=== PATIENT | male | born 1930 | race Caucasian/White ===

== ENCOUNTER 2018-11-30 13:17 | Inpatient (IN) | payer OTHER, MEDICARE ==
--- NOTE | 2018-11-30 13:26 | PDOC ---
History of Present Illness - General Chief Complaint: Shortness of Breath Stated Complaint: SHORNTESS OF BREATH Time Seen by Provider: 11/30/18 13:25 - History of Present Illness Initial Comments: 88yo M with PMH of HTN, HLD, Afib (on Eliquis) brought in by EMS for shortness of breath. Patient states he has had worsening shortness of breath for the past two months or so. He presents today because it got acutely worse today. Patient also reports dyspnea on exertion. He used to be an active person, but today his daughter who was visiting him was afraid he might fall going up one stair step. He also endorses leg swelling for the past week or so and also abdominal distention such that his pants were difficult to get on. Has never taken a diuretic. Has not had increased fluid intake. No chest pain or cough. No hemoptysis, no recent surgical history, no recent immobilization, no hormone use, no history of DVT or PE. Denies smoking history or lung pathology such as COPD or asthma. No fever or chills. PCP: Dr. Fung Cardio: Dr. Cortez Past History - Past Medical History Allergies/Adverse Reactions: Allergies Allergy/AdvReac Type Severity Reaction Status Date / Time No Known Allergies Allergy Verified 11/30/18 13:29 Home Medications: Ambulatory Orders Atorvastatin Ca [Lipitor -] 20 mg PO DAILY 03/01/14 Amiodarone HCl 200 mg PO DAILY 11/30/18 Amlodipine Besylate [Norvasc -] 10 mg PO DAILY 11/30/18 Apixaban [Eliquis] 5 mg PO BID 11/30/18 Losartan Potassium 100 mg PO DAILY 11/30/18 Metoprolol Succinate 100 mg PO BID 11/30/18 Anemia: No Asthma: No Cancer: No Cardiac Disorders: No CVA: No COPD: No CHF: No Dementia: No Diabetes: No GI Disorders: No Disorders: No HTN: Yes Hypercholesterolemia: Yes Liver Disease: No Seizures: No Thyroid Disease: No - Surgical History Abdominal Surgery: No Appendectomy: No Cardiac Surgery: No Cholecystectomy: No Lung Surgery: No Neurologic Surgery: No Orthopedic Surgery: Yes (right hip replacement) - Suicide/Smoking/Psychosocial Hx Smoking History: Former smoker Have you smoked in the past 12 months: No Review of Systems - Review of Systems Comments:: Constitutional: no fever, no chills HEENT: no throat pain, no dysphagia Cardiovascular: no chest pain, no palpitations Respiratory: no cough, +shortness of breath Gastrointestinal: no abdominal pain, no nausea Genitourinary: no dysuria, no frequency Musculoskeletal: no myalgia, no arthralgia Skin: no rash, no itching Neurologic: no headache, no focal deficits *Physical Exam - Physical Exam Comments: General: Awake, alert, and fully oriented, in no acute distress Head: No signs of trauma Eyes: EOMI, sclera anicteric ENT: Moist mucus membranes Neck: Normal ROM, supple Lungs: Decreased breath sounds at the bases Cardio: Irregular rhythm, S1 and S2 present Abdomen: Soft, nontender Extremities: Normal range of motion, Distal pulses present, 2+ pitting edema, no calf tenderness SKIN: Warm, Dry, normal turgor Neurologic: Cranial nerves II through XII grossly intact. Normal speech ED Treatment Course - LABORATORY CBC & Chemistry Diagram: 11/30/18 14:16 11/30/18 14:16 Medical Decision Making - Medical Decision Making 88yo M with PMH of HTN, HLD, Afib (on Eliquis) brought in by EMS for shortness of breath. DDX including but not limited to CHF exacerbation, ACS, PNA, PE, COPD High suspicion for new-onset CHF given patient appearing fluid overloaded. Recent diagnosis of Afib may also be contributing. No cardiac ECHO results known or seen in EMR. 11/30/18 13:58 CBC WBC 13.3 K/mm3 (4.0-10.0) H 11/30/18 14:16 RBC 4.31 M/mm3 (4.00-5.60) 11/30/18 14:16 Hgb 13.8 GM/dL (11.7-16.9) 11/30/18 14:16 Hct 39.8 % (35.4-49) 11/30/18 14:16 MCV 92.2 fl (80-96) 11/30/18 14:16 MCH 32.0 pg (25.7-33.7) 11/30/18 14:16 MCHC 34.7 g/dl (32.0-35.9) 11/30/18 14:16 RDW 14.0 % (11.9-15.9) 11/30/18 14:16 Plt Count 267 K/MM3 (134-434) 11/30/18 14:16 MPV 7.2 fl (7.5-11.1) L 11/30/18 14:16 Absolute Neuts (auto) 11.6 K/mm3 (1.5-8.0) H 11/30/18 14:16 Neutrophils % 87.0 % (42.8-82.8) H 11/30/18 14:16 Lymphocytes % 6.0 % (8-40) L 11/30/18 14:16 Monocytes % 6.3 % (3.8-10.2) 11/30/18 14:16 Eosinophils % 0.1 % (0-4.5) 11/30/18 14:16 Basophils % 0.6 % (0-2.0) 11/30/18 14:16 Nucleated RBC % 0 % (0-0) 11/30/18 14:16 Mild leukocytosis No anemia CMP Sodium 122 mmol/L (136-145) L 11/30/18 14:16 Potassium 4.5 mmol/L (3.5-5.1) 11/30/18 14:16 Chloride 90 mmol/L (98-107) L 11/30/18 14:16 Carbon Dioxide 24 mmol/L (21-32) 11/30/18 14:16 Anion Gap 8 MMOL/L (8-16) 11/30/18 14:16 BUN 24 mg/dL (7-18) H 11/30/18 14:16 Creatinine 0.9 mg/dL (0.55-1.3) 11/30/18 14:16 Creat Clearance w eGFR 79.45 (>60) 11/30/18 14:16 Random Glucose 138 mg/dL (74-106) H 11/30/18 14:16 Calcium 8.8 mg/dL (8.5-10.1) 11/30/18 14:16 Total Bilirubin 1.0 mg/dL (0.2-1) 11/30/18 14:16 AST 33 U/L (15-37) 11/30/18 14:16 ALT 46 U/L (13-61) 11/30/18 14:16 Alkaline Phosphatase 89 U/L (45-117) 11/30/18 14:16 Troponin I < 0.02 ng/ml (0.00-0.05) 11/30/18 14:16 B-Natriuretic Peptide 1401.6 pg/ml (5-450) H 11/30/18 14:16 Total Protein 8.1 g/dl (6.4-8.2) 11/30/18 14:16 Albumin 3.4 g/dl (3.4-5.0) 11/30/18 14:16 TSH 2.08 uIU/ml (0.358-3.74) 11/30/18 14:16 Hyponatremia likely due to fluid overload BNP elevated 1401 Tpn undetectable CXR: "There are no prior studies for comparison. There is a large heart, congestive changes and some questionable atelectasis or infiltrate with fluid at the bases. There are degenerative spine and shoulder changes. Correlation recommended. ' 40 Lasix ordered Patient increasingly became diaphoretic and tachypneic, appearing uncomfortable BiPAP orderd Patient improved Discussed case with Dr. Gramajo who accepted patient for telemetry admission 11/30/18 16:[address] Cortez who would like to speak to Dr. Gramajo regarding patient's admission and to contact his cell number, . telegraph repeater mechanic passed along message. 11/30/18 17:02 Patient's daughter, Nichelle, can be reached at [phone] 11/30/18 21:40 *DC/Admit/Observation/Transfer Diagnosis at time of Disposition: New onset of congestive heart failure - Discharge Dispostion Condition at time of disposition: Guarded Decision to Admit order: Yes - Referrals - Patient Instructions - Post Discharge Activity
--- NOTE | 2018-11-30 14:14 | PDOC ---
Documentation entered by Melquiades Cabrales SCRIBE, acting as scribe for Jannet Teran MD. Jannet Teran MD: This documentation has been prepared by the nelyibe, Melquiades Cabrales SCRIBE, under my direction and personally reviewed by me in its entirety. I confirm that the documentation accurately reflects all work, treatment, procedures, and medical decision making performed by me. Attending Attestation - Resident Resident Name: Jannet Allred - ED Attending Attestation I have performed the following: I have examined & evaluated the patient, The case was reviewed & discussed with the resident, I agree w/resident's findings & plan, Exceptions are as noted - HPI HPI: 11/30/18 14:06 The patient is a 88 year old female with a significant past medical history of hypertension, hyperlipidemia and afib ( on eliquis) who report to the emergency department worsening shortness of breath for about 1 month. he states that his SOB has worsened in the past week.the patient also endorses some recent increase in leg swelling causing his pants to not fit him anymore. He has been dyspneic while going up 1 step earlier today. The patient denies any chest pain , cough, recent travel , increase in fluid intake, fever, chills, nausea, vomiting, or diarrhea. He denies any other complaints. - Physicial Exam PE: GENERAL: Awake, alert, and fully oriented, in no acute distress HEAD: No signs of trauma EYES: PERRLA, EOMI, sclera anicteric, conjunctiva clear ENT: Auricles normal inspection, hearing grossly normal, nares patent, oropharynx clear without exudates. Moist mucosa NECK: Normal ROM, supple, no lymphadenopathy, JVD, or masses LUNGS: Good air entry B/L, +crackles at bases B/L HEART: Regular rate and rhythm, normal S1 and S2, no murmurs, rubs or gallops ABDOMEN: Soft, nontender, normoactive bowel sounds. No guarding, no rebound. No masses. +Abdominal retractions on inspiration EXTREMITIES: Normal range of motion, 2+ pitting edema to BLE. No clubbing or cyanosis. No cords, erythema, or tenderness NEUROLOGICAL: Cranial nerves II through XII grossly intact. Normal speech. Motor and sensation intact SKIN: Warm, Dry, normal turgor, no rashes or lesions noted. - Medical Decision Making Pt with signs of new onset heart failure. No prior history of CHF, and no prior diuretic use. Will await workup, then will call Dr. Cortez to discuss. Plan for admission.
[2018-11-30 14:27] LABS: BASO % 0.6 % (0-2.0); EOS % 0.1 % (0-4.5); HEMATOCRIT 39.8 % (35.4-49); HEMOGLOBIN 13.8 GM/dL (11.7-16.9); MCHC 34.7 g/dl (32.0-35.9); MEAN CELL VOLUME 92.2 fl (80-96); MEAN PLT VOLUME 7.2 fl (7.5-11.1); MONO % 6.3 % (3.8-10.2); PLATELET COUNT 267 K/MM3 (134-434); RBC 4.31 M/mm3 (4.00-5.60); WHITE BLOOD COUNT 13.3 K/mm3 (4.0-10.0)
[2018-11-30] MEDS ORDERED: FUROSEMIDE 40 MG/4 ML INJECTABLE VIAL IVPUSH ONE ×2 (14:29→17:29)
[2018-11-30 15:17] LABS: ALBUMIN 3.4 g/dl (3.4-5.0); ALK PHOS 89 U/L (45-117); ANION GAP 8 MMOL/L (8-16); BLOOD UREA NITROGEN 24 mg/dL (7-18); CALCIUM 8.8 mg/dL (8.5-10.1); CHLORIDE 90 mmol/L (98-107); CO2 24 mmol/L (21-32); CREATININE 0.9 mg/dL (0.55-1.3); GLUCOSE,RANDOM 138 mg/dL (74-106); N-TERMINAL BNP 1401.6 pg/ml (5-450); POTASSIUM 4.5 mmol/L (3.5-5.1); SGOT/AST 33 U/L (15-37); SGPT/ALT 46 U/L (13-61); SODIUM 122 mmol/L (136-145); TOT PROT 8.1 g/dl (6.4-8.2)
[2018-11-30 15:37] LABS: INR 1.43 (0.83-1.09); PROTHROMBIN TIME (PATIENT) 16.9 SEC (9.7-13.0)
[2018-11-30 15:40] LABS: ACTIVATED PTT 34.4 SECONDS (25.2-36.5)
[2018-11-30 16:00] LABS: PH,URINE 5.5 (5.0-8.0); URINE APPEARANCE CLEAR; URINE BACTERIA 5.4 /hpf (NEGATIVE); URINE BILIRUBIN NEGATIVE (NEGATIVE); URINE CASTS 4 /lpf (0-8); URINE COLOR YELLOW; URINE GLUCOSE (UA) NEGATIVE (NEGATIVE); URINE KETONE NEGATIVE (NEGATIVE); URINE LEUK ESTERASE NEGATIVE (NEGATIVE); URINE NITRITE NEGATIVE (NEGATIVE); URINE PROTEIN 2+ (NEGATIVE); URINE RBC 3 /hpf (0-4); URINE WBC 1 /hpf (0-5)
--- NOTE | 2018-11-30 17:00 | HP ---
CHIEF COMPLAINT: shortness of breath, weight gain, leg and abdominal swelling PCP: Dr. Fung Electrical Lineman: Dr. Cortez HISTORY OF PRESENT ILLNESS: 88 yom with PMhx of HTN, HLD, diagnosed with new onset atrial fibrillation on routine check up with Dr Cortez 3 months ago, placed on eliquis, reportedly started on amiodarone 200 mg, no recent echo (per family), comes with progressive shortness of breath, weight gain, leg swelling, abdominal distension , unable to fit in his clothes. Over the last few days, breathing was worse, so came to the ED. In the ED, was short of breath, diaphoretic, placed on bipap. Currently feels much better after being on bipap and receiving lasix 40 mg IV 12 point ROS done, pos for PND. Denies any chest pain, palpitations, dizziness, urinary complaints. 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 [place] Family History: Allergies No Known Allergies Allergy (Verified 11/30/18 13:29) HOME MEDICATIONS: Home Medications Medication Instructions Recorded Atorvastatin Ca [Lipitor -] 20 mg PO DAILY 03/01/14 Amiodarone HCl 200 mg PO DAILY 11/30/18 Amlodipine Besylate [Norvasc -] 10 mg PO DAILY 11/30/18 Apixaban [Eliquis] 5 mg PO BID 11/30/18 Losartan Potassium 100 mg PO DAILY 11/30/18 Metoprolol [place]/Hydrochlorothiaz 100 mg PO BID 11/30/18 [Metoprolol ER-Hctz 100-12.5 mg] REVIEW OF SYSTEMS 12 point ROS done, per HPI PHYSICAL EXAMINATION Vital Signs - 24 hr 11/30/18 11/30/18 11/30/18 13:17 14:22 15:25 Temperature 97.6 F Pulse Rate 82 Respiratory 16 Rate Blood Pressure 153/82 O2 Sat by Pulse 100 90 L 96 Oximetry (%) GENERAL: Awake, alert, and fully oriented, on bipap,comfortable now, able to speak in full sentences HEAD: Normal with no signs of trauma. EYES: Pupils equal, round and reactive to light, extraocular movements intact, sclera anicteric, conjunctiva clear. No lid lag. EARS, NOSE, THROAT: Ears normal, nares patent, oropharynx clear without exudates. Moist mucous membranes. NECK: soft, supple, neck vein distension LUNGS: bibasilar rales till mid lung, scattered rhonchi HEART: S1S2 irregular, unable to appreciate murmurs/rales or wheezing as obscured by breath sounds ABDOMEN: Soft, distended, NT throughout, positive bowel sounds MUSCULOSKELETAL: Normal range of motion at all joints. No bony deformities or tenderness. No CVA tenderness. UPPER EXTREMITIES: 2+ pulses, warm, well-perfused. No cyanosis. No clubbing. No peripheral edema. LOWER EXTREMITIES: 2+ pedal pitting edema NEUROLOGICAL: AAOx3, moves all extremities freely, Cranial nerves II-XII intact. Normal speech. Gait not observed PSYCHIATRIC: Cooperative. Good eye contact. Appropriate mood and affect. SKIN: Warm, dry, normal turgor, no rashes or lesions noted, normal capillary refill. Laboratory Results - last 24 hr 11/30/18 11/30/18 11/30/18 14:16 14:16 14:16 WBC 13.3 H RBC 4.31 Hgb 13.8 Hct 39.8 MCV 92.2 MCH 32.0 MCHC 34.7 RDW 14.0 Plt Count 267 MPV 7.2 L Absolute Neuts (auto) 11.6 H Neutrophils % 87.0 H Lymphocytes % 6.0 L Monocytes % 6.3 Eosinophils % 0.1 Basophils % 0.6 Nucleated RBC % 0 PT with INR 16.90 H INR 1.43 H PTT (Actin FS) 34.4 Sodium 122 L Potassium 4.5 Chloride 90 L Carbon Dioxide 24 Anion Gap 8 BUN 24 H Creatinine 0.9 Creat Clearance w eGFR 79.45 Random Glucose 138 H Calcium 8.8 Total Bilirubin 1.0 AST 33 ALT 46 Alkaline Phosphatase 89 Troponin I < 0.02 B-Natriuretic Peptide 1401.6 H Total Protein 8.1 Albumin 3.4 TSH 2.08 Urine Color Urine Appearance Urine pH Ur Specific [place] Urine Protein Urine Glucose (UA) Urine Ketones Urine Blood Urine Nitrite Urine Bilirubin Urine Urobilinogen Ur Leukocyte Esterase Urine WBC (Auto) Urine RBC (Auto) Urine Casts (Auto) U Epithel Cells (Auto) Urine Bacteria (Auto) 11/30/18 15:38 WBC RBC Hgb Hct MCV MCH MCHC RDW Plt Count MPV Absolute Neuts (auto) Neutrophils % Lymphocytes % Monocytes % Eosinophils % Basophils % Nucleated RBC % PT with INR INR PTT (Actin FS) Sodium Potassium Chloride Carbon Dioxide Anion Gap BUN Creatinine Creat Clearance w eGFR Random Glucose Calcium Total Bilirubin AST ALT Alkaline Phosphatase Troponin I B-Natriuretic Peptide Total Protein Albumin TSH Urine Color Yellow Urine Appearance Clear Urine pH 5.5 Ur Specific [place] 1.018 Urine Protein 2+ H Urine Glucose (UA) Negative Urine Ketones Negative Urine Blood Trace Urine Nitrite Negative Urine Bilirubin Negative Urine Urobilinogen 1.0 Ur Leukocyte Esterase Negative Urine WBC (Auto) 1 Urine RBC (Auto) 3 Urine Casts (Auto) 4 U Epithel Cells (Auto) 1.0 Urine Bacteria (Auto) 5.4 CXR - congestion EKG - sinus tach 107, QTc 440 ASSESSMENT/PLAN: 88 yom with PMHx of HTN, HLD, recently diagnosed Atrial fibrillation on Eliquis/ Amiodarone admitted with ACute CHF exacerbation -Acute CHF exacerbation, systolic vs diastolic vs paroxysmal Afib with RVR -Acute hypoxic respiratory failure, suspected from above -Recentaly diagnosed Atrial fibrillation -HTN -HLD -Plan: Improved on bipap and lasix iV Continue lasix 40 mg IV BID, strict I/Os (educated patient), daily weights. Check 2 D echo (no recent study) telemetry, cycle trop. Cardiology consult with Dr. Cortez, case discussed with him,will follow up on recs. Bipap prn, taper as symptoms improve Continue amiodarone/eliquis/metoprolol/statin. Resume amlodipine in AM based on hemodynamics DVTPPX on eliquis DIspo admit to inpatient tele Plan discussed with patient and at bedside in detail, all questions answered. Care co-ordinated with ED and cardiology. Total admit time spent 65 min. Visit type - Emergency Visit Emergency Visit: Yes ED Registration Date: 11/30/18 Care time: The patient presented to the Emergency Department on the above date and was hospitalized for further evaluation of their emergent condition. - New Patient This patient is new to me today: Yes Date on this admission: 11/30/18 - Critical Care Critical Care patient: No
[2018-11-30] MEDS ORDERED: FUROSEMIDE 40 MG/4 ML INJECTABLE VIAL ONE (17:42)
--- NOTE | 2018-11-30 21:15 | CONS ---
DATE OF CONSULTATION: 11/30/2018 CARDIOLOGY CONSULTATION CHIEF COMPLAINTS: 1. Increasing shortness of breath. 2. Pedal edema. 3. PVD. The patient is an 88-year-old [place] gentleman with long-standing history of hypertension, hyperlipidemia, was recently seen in the office and was found to be in asymptomatic atrial fibrillation with controlled ventricular response. He was started on Eliquis and also was started on amiodarone. For the past 1 week, patient has been experiencing increasing exertional dyspnea and he was unable to walk even a few feet without experiencing shortness of breath. Since yesterday, he has been experiencing shortness of breath at rest and, according to his , he was noted to have increasing pedal edema, also complained of abdominal distention and increased girth. He complained of easy fatigability. There is no history of chest pain or discomfort even at rest or with exertion. No history of paroxysmal nocturnal dyspnea or orthopnea. He sleeps on 1 pillow. No history of palpitations, lightheadedness, dizziness, presyncope or syncope. History of intermittent wheezing and occasional nonproductive cough. PAST HISTORY: As mentioned in the history of present illness. 1. History of bleeding peptic ulcer disease back in the 1960's. 2. History of arthritis of the right hip. 3. 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 SURGICAL HISTORY: Status post right hip replacement. SOCIAL HISTORY: He is retired, , has 5 children, 4 sons and a daughter. 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 FAMILY HISTORY: Father at age 87 of natural causes. Mother at age 91, also of natural causes. Had 3 sisters and 3 brothers. Two of the sisters and one of the brothers are . The brother of dementia. One of the sisters at age 92 and had history of cancer, site uncertain. The other sister at 81, apparently of natural causes. ALLERGIES: None reported. MEDICATIONS: Prior to admission, he was on the following medications: 1. Amlodipine 10 mg p.o. daily. 2. Metoprolol 100 mg p.o. b.i.d. 3. Losartan 100 mg p.o. daily. 4. Atorvastatin 20 mg p.o. daily. 5. Amiodarone 200 mg p.o. daily. 6. Eliquis 5 mg p.o. b.i.d. REVIEW OF SYSTEMS: Constitutional: No history of chills, fever or night sweats. No history of unintentional weight loss. HEENT: No history of headaches, diplopia, blurred vision. No history of epistaxis, hoarseness, tinnitus or deafness. Cardiovascular: See history of present illness. Respiratory: See history of present illness. No history of hemoptysis or tuberculosis. Gastrointestinal: No history of nausea, vomiting, melena, or hematemesis. No history of abdominal pain. History of abdominal distention for the past few days. No history of change in bowel habits. Neurological: No history of lightheadedness, dizziness, presyncope or syncope reported. No history of focal weakness. Genitourinary: History of frequent nocturia, every 2 hours. History of urgency. No history of hematuria or dysuria. Musculoskeletal: No history recent arthralgias or myalgias reported. Hematological: No history of anemia, bleeding, or ecchymosis. Miscellaneous: History of loud snoring, according to his . No history of apnea or periodic limb movements reported. No history of increased somnolence during the daytime. EXAMINATION: General: An 88-year-old alert and obese gentleman, who is in no acute distress at the time of examination. Earlier, he had been on a BiPAP. No pallor, cyanosis, clubbing, or jaundice. Vital Signs: Weight 95.254 kg. Blood pressure 120/93 mmHg. Pulse 92 beats per minute and irregularly irregular. Respirations 16 per minute. Oxygen saturation . Neck: Supple. No jugular venous distention. Slightly positive hepatojugular reflux. Carotids were 2+. Upstrokes were normal. No bruits were heard. There was no thyromegaly. No supraclavicular or inframandibular lymphadenopathy. Heart: PMI was in the 5th intercostal space. No heaves or thrills. Heart sounds were distant, S1 was variable, S2 was split. No murmurs were heard. There was an S3 gallop at the apex. Lungs: Fine crepitations at the right base. No other extraneous sounds were heard. Chest: Normal AP diameter. Expansion was symmetrical. No bruits were heard. Bowel sounds were present. Extremities: With 2+ bilateral pedal edema, 1 to 2+ bilateral pretibial edema. There was an ulceration involving the plantar surface of the left foot and there were ecchymotic areas involving the 2nd right toe. Dorsalis pedis and posterior tibial pulses could not be palpated. Femoral pulses were 1 to 2+. ECG: Atrial rhythm is uncertain, most likely atrial fibrillation with and controlled ventricular response. Left anterior hemiblock. Poor R-wave progression across V1 to V5, may be related to left anterior hemiblock and underlying anterior wall myocardial infarction cannot be excluded. Diffuse ST and T-wave abnormalities. No previous ECG was available for comparison. X-ray of chest, portable: Impression: There are no prior studies for comparison. There is a large heart, congestive changes, and some questionable atelectasis or infiltrate with fluid at the bases. There are degenerative spine and shoulder changes. Correlation recommended. LABORATORY DATA: CBC: WBC 13,300, hemoglobin 13.8 g/dL, platelet count 267,000, neutrophils were elevated at 87%, lymphocytes 6%, monocytes 6.3%, eosinophils 0.1%, basophils 0.6%. Chemistry: Sodium 122, potassium 4.5, chloride 90, CO2 24 mmol/L, BUN 24, creatinine 0.9 mg/dL, random glucose 138 mg/dL, calcium 8.8 mg/dL. BNP was elevated at 1401.6. Liver function tests were normal. Troponin was less than 0.02. TSH was 2.08. IMPRESSION: 1. Progressive congestive heart failure of recent onset, [place] Heart classification IV (on admission). 2. Recently diagnosed persistent atrial fibrillation with controlled ventricular response. 3. Hypertension, hypertensive cardiovascular disease. 4. History of hypercholesterolemia. 5. Exogenous obesity. 6. Sleep apnea needs to be excluded. 7. Hyponatremia. RECOMMENDATIONS: 1. Recheck electrolytes. 2. Cautious use of diuretics in the presence of hyponatremia. 3. Echocardiogram. 4. If blood pressure or heart rate is low, consider reducing the dose of metoprolol to 50 mg p.o. b.i.d. 5. Daily weights. 6. Close monitoring of oxygen saturation. 7. Follow up electrocardiogram and enzymes. PROGNOSIS: Critical. TIME SPENT: 1 hour 45 minutes. Thank you for your referral. Yours sincerely, BEV MESA M.D. [id number]
[2018-11-30] MEDS ORDERED: APIXABAN 5 MG TABLET PO ONE (21:25)
[2018-11-30] MEDS ORDERED: ATORVASTATIN CA 10 MG TABLET (FP) ONE (21:26)
[2018-11-30] MEDS: ATORVASTATIN CA 20 MG TABLET (FP) PO SCH (21:58)
[2018-11-30] MEDS: APIXABAN 5 MG TABLET PO SCH (21:58)
[2018-12-01] MEDS ORDERED: FUROSEMIDE 40 MG/4 ML INJECTABLE VIAL ONE (06:15)
[2018-12-01] MEDS: FUROSEMIDE 40 MG/4 ML INJECTABLE VIAL IVPUSH SCH ×2 (06:17→17:31)
[2018-12-01 06:52] LABS: BASO % 0.7 % (0-2.0); EOS % 0.5 % (0-4.5); HEMATOCRIT 37.1 % (35.4-49); HEMOGLOBIN 13.2 GM/dL (11.7-16.9); MCH 32.5 pg (25.7-33.7); MCHC 35.5 g/dl (32.0-35.9); MEAN CELL VOLUME 91.4 fl (80-96); MEAN PLT VOLUME 7.7 fl (7.5-11.1); NEUT % 73.8 % (42.8-82.8); PLATELET COUNT 254 K/MM3 (134-434); RBC 4.06 M/mm3 (4.00-5.60); WHITE BLOOD COUNT 12.6 K/mm3 (4.0-10.0)
[2018-12-01 07:23] LABS: ALBUMIN 3.4 g/dl (3.4-5.0); ALK PHOS 69 U/L (45-117); ANION GAP 10 MMOL/L (8-16); BILIRUBIN,TOTAL 1.1 mg/dL (0.2-1); BLOOD UREA NITROGEN 22 mg/dL (7-18); CALCIUM 8.4 mg/dL (8.5-10.1); CHLORIDE 91 mmol/L (98-107); CO2 26 mmol/L (21-32); CREATININE 0.9 mg/dL (0.55-1.3); GLUCOSE,RANDOM 93 mg/dL (74-106); PHOSPHOROUS 3.7 mg/dL (2.5-4.9); POTASSIUM 3.6 mmol/L (3.5-5.1); SGOT/AST 38 U/L (15-37); SGPT/ALT 40 U/L (13-61); SODIUM 127 mmol/L (136-145); TOT PROT 7.2 g/dl (6.4-8.2)
--- NOTE | 2018-12-01 08:23 | PN ---
Physical Exam: SUBJECTIVE: Patient seen and examined, breathing with some improvement, no new complaints. OBJECTIVE: Vital Signs Period Temp Pulse Resp BP Sys/Go Pulse Ox Last 24 Hr 97.6 F 65-92 16-26 118-153/77-93 90-100 Intake & Output 11/28/18 11/29/18 11/30/18 12/01/18 23:59 23:59 23:59 23:59 Output Total 600 Balance -600 Weight 210 lb GENERAL: lying in bed, tachypneic, but able to speak in full sentences Neck: soft, supple, neck vein distension CVS:S1s2 irregular Chest improved basilar rales, no rhonchi noted today Abdomen;soft, improved distension, NT Extremities: 1-2+ pedal pitting edema, overall unchanged Laboratory Results - last 24 hr 11/30/18 11/30/18 11/30/18 14:16 14:16 14:16 WBC 13.3 H RBC 4.31 Hgb 13.8 Hct 39.8 MCV 92.2 MCH 32.0 MCHC 34.7 RDW 14.0 Plt Count 267 MPV 7.2 L Absolute Neuts (auto) 11.6 H Neutrophils % 87.0 H Lymphocytes % 6.0 L Monocytes % 6.3 Eosinophils % 0.1 Basophils % 0.6 Nucleated RBC % 0 PT with INR 16.90 H INR 1.43 H PTT (Actin FS) 34.4 Sodium 122 L Potassium 4.5 Chloride 90 L Carbon Dioxide 24 Anion Gap 8 BUN 24 H Creatinine 0.9 Creat Clearance w eGFR 79.45 Random Glucose 138 H Calcium 8.8 Phosphorus Magnesium Total Bilirubin 1.0 AST 33 ALT 46 Alkaline Phosphatase 89 Troponin I < 0.02 B-Natriuretic Peptide 1401.6 H Total Protein 8.1 Albumin 3.4 TSH 2.08 Urine Color Urine Appearance Urine pH Ur Specific Superior Urine Protein Urine Glucose (UA) Urine Ketones Urine Blood Urine Nitrite Urine Bilirubin Urine Urobilinogen Ur Leukocyte Esterase Urine WBC (Auto) Urine RBC (Auto) Urine Casts (Auto) U Epithel Cells (Auto) Urine Bacteria (Auto) 11/30/18 11/30/18 12/01/18 15:38 21:40 05:50 WBC RBC Hgb Hct MCV MCH MCHC RDW Plt Count MPV Absolute Neuts (auto) Neutrophils % Lymphocytes % Monocytes % Eosinophils % Basophils % Nucleated RBC % PT with INR INR PTT (Actin FS) Sodium Potassium Chloride Carbon Dioxide Anion Gap BUN Creatinine Creat Clearance w eGFR Random Glucose Calcium Phosphorus Magnesium Total Bilirubin AST ALT Alkaline Phosphatase Troponin I < 0.02 < 0.02 B-Natriuretic Peptide Total Protein Albumin TSH Urine Color Yellow Urine Appearance Clear Urine pH 5.5 Ur Specific Superior 1.018 Urine Protein 2+ H Urine Glucose (UA) Negative Urine Ketones Negative Urine Blood Trace Urine Nitrite Negative Urine Bilirubin Negative Urine Urobilinogen 1.0 Ur Leukocyte Esterase Negative Urine WBC (Auto) 1 Urine RBC (Auto) 3 Urine Casts (Auto) 4 U Epithel Cells (Auto) 1.0 Urine Bacteria (Auto) 5.4 12/01/18 12/01/18 05:50 05:50 WBC 12.6 H RBC 4.06 Hgb 13.2 Hct 37.1 MCV 91.4 MCH 32.5 MCHC 35.5 RDW 14.0 Plt Count 254 MPV 7.7 Absolute Neuts (auto) 9.3 H Neutrophils % 73.8 Lymphocytes % 15.0 D Monocytes % 10.0 Eosinophils % 0.5 D Basophils % 0.7 Nucleated RBC % 0 PT with INR INR PTT (Actin FS) Sodium 127 L Potassium 3.6 Chloride 91 L Carbon Dioxide 26 Anion Gap 10 BUN 22 H Creatinine 0.9 Creat Clearance w eGFR 79.45 Random Glucose 93 Calcium 8.4 L Phosphorus 3.7 Magnesium 2.0 Total Bilirubin 1.1 H AST 38 H ALT 40 Alkaline Phosphatase 69 Troponin I B-Natriuretic Peptide Total Protein 7.2 Albumin 3.4 TSH Urine Color Urine Appearance Urine pH Ur Specific Superior Urine Protein Urine Glucose (UA) Urine Ketones Urine Blood Urine Nitrite Urine Bilirubin Urine Urobilinogen Ur Leukocyte Esterase Urine WBC (Auto) Urine RBC (Auto) Urine Casts (Auto) U Epithel Cells (Auto) Urine Bacteria (Auto) Active Medications Generic Name Dose Route Start Last Admin Trade Name Freq PRN Reason Stop Dose Admin Amiodarone HCl 200 mg 12/01/18 10:00 Cordarone - PO DAILY JULIAN Apixaban 5 mg 11/30/18 22:00 11/30/18 21:58 Eliquis - PO 5 mg BID JULIAN Administration Atorvastatin Calcium 20 mg 11/30/18 22:00 11/30/18 21:58 Lipitor - PO Not Given HS [facility] Furosemide 40 mg 12/01/18 06:00 12/01/18 06:17 Lasix Injection - IVPUSH 40 mg BID@0600,1400 JULIAN Administration Metoprolol Succinate 100 mg 11/30/18 22:00 11/30/18 21:58 Toprol Xl - PO Not Given BID JULIAN Telemetry Afib rate controled. ASSESSMENT/PLAN: 88 yom with PMHx of HTN, HLD, recently diagnosed Atrial fibrillation on Eliquis/ Amiodarone admitted with ACute CHF exacerbation -Acute CHF exacerbation, systolic vs diastolic vs from paroxysmal Afib with RVR -Acute hypoxic respiratory failure, suspected from above -Recentaly diagnosed Atrial fibrillation -HTN -HLD -Plan: Still tachypneic and hypoxic Continue lasix 40 mg IV BID, monitor if needs higher dose. Repeat CXR. Bipap prn Strict I/Os. Follow up 2D echo. Cardiology input appreciated. ACS ruled out. Still in Afib. Continue eliquis/metoprolol/amiodarone/statin resume amlodipine based on hemodynamics. Dispo anticipate home +/- services pending clinical improvement. Plan discussed with patient and ED nurse in detail, all questions answered. Visit type - Emergency Visit Emergency Visit: Yes ED Registration Date: 11/30/18 Care time: The patient presented to the Emergency Department on the above date and was hospitalized for further evaluation of their emergent condition. - New Patient This patient is new to me today: No - Critical Care Critical Care patient: No - Discharge Referral Referred to [facility] Med P.C.: No
--- NOTE | 2018-12-01 10:59 | EKG ---
Test Reason : Blood Pressure : / mmHG Vent. Rate : 075 BPM Atrial Rate : 046 BPM P-R Int : 000 ms QRS Dur : 118 ms QT Int : 402 ms P-R-T Axes : 000 -44 083 degrees QTc Int : 448 ms UNDETERMINED RHYTHM , LIKELY ATRIAL FIBRILLATION LEFT AXIS DEVIATION ANTEROSEPTAL INFARCT , AGE UNDETERMINED ABNORMAL ECG NO PREVIOUS ECGS AVAILABLE Confirmed by DEWEY BOSS MD ([id number]) on 12/01/2018 10:59:12 AM Referred By: Confirmed By:DEWEY BOSS MD
[2018-12-01] MEDS: AMIODARONE HCL 200 MG TABLET (FP) PO SCH (11:00)
[2018-12-01] MEDS: APIXABAN 5 MG TABLET PO SCH ×2 (11:00→22:01)
[2018-12-01 16:15] VITALS: BMI 33.7
--- NOTE | 2018-12-01 16:21 | ECHO ---
Name: OBI JAUREGUI Exam:Adult Echocardiogram Study Date: 12/01/2018 12:59 PM Age: 88 yrs Reason For Study: NEW ONSET OF CHF Height: 70 in Weight: 210 lb BSA: 2.1 m2 MMode/2D Measurements & Calculations IVSd: 1.0 cm Ao root diam: 3.2 cm LVIDd: 5.4 cm LA dimension: 4.1 cm LVIDs: 3.8 cm LVPWd: 1.0 cm EDV(Teich): 139.1 ml LVOT diam: 2.2 cm ESV(Teich): 63.2 ml Doppler Measurements & Calculations MV E max jordan: 124.4 cm/sec Ao V2 max: 124.1 cm/sec MV A max jordan: 42.4 cm/sec Ao max P.2 mmHg MV E/A: 2.9 Ao V2 mean: 82.1 cm/sec MV dec time: 0.14 sec Ao mean P.1 mmHg Ao V2 VTI: 24.6 cm YANIV(I,D): 3.2 cm2 AI P1/2t: 306.5 msec YANIV(V,D): 3.3 cm2 AI max jordan: 226.1 cm/sec LV V1 max P.0 mmHg AI max P.5 mmHg LV V1 mean P.4 mmHg AI dec slope: 216.0 cm/sec2 LV V1 max: 112.0 cm/sec LV V1 mean: 71.1 cm/sec LV V1 VTI: 21.3 cm MR max jordan: 460.9 cm/sec SV(LVOT): 77.7 ml MR max P.0 mmHg TR max jordan: 309.0 cm/sec Med Peak E' Jordan: 6.1 cm/sec TR max P.6 mmHg Med E/e': 20.3 Lat Peak E' Jordan: 9.1 cm/sec Lat E/e': 13.7 Procedure A complete two-dimensional transthoracic echocardiogram was performed (2D, M-mode, Doppler and color flow Doppler). Technically limited study. Left Ventricle The left ventricle is normal in size. Left ventricular systolic function is low normal. Ejection Frac tion = 50-55%. Diastolic dysfunction, Grade III (restrictive pattern), consistent with markedly increased le ft atrial pressure. Ratio E/E'= 20. The transmitral spectral Doppler flow pattern is suggestive of restrictive physiology. No regional wall motion abnormalities noted. Right Ventricle The right ventricle is normal size. The right ventricular systolic function is normal. RV systolic TD I is 10 cm/s. Atria The left atrium is mildly dilated. Right atrial size is normal. Mitral Valve The mitral valve is normal in structure and function. There is moderate mitral regurgitation. Tricuspid Valve The tricuspid valve is normal in structure and function. There is mild tricuspid regurgitation. Pulmo nary artery systolic pressure is at least 52 mmHg if RA pressure is assumed 3 mmHg. Aortic Valve The aortic valve is normal in structure and function. Trace to mild aortic regurgitation. Pulmonic Valve The pulmonic valve is not well visualized. Trace pulmonic valvular regurgitation. Great Vessels The aortic root is normal size. Pericardium/Pleura There is no pericardial effusion. Interpretation Summary Technically limited study The left ventricle is normal in size. Left ventricular systolic function is low normal. No regional wall motion abnormalities noted. Ejection Fraction = 50-55%. Diastolic dysfunction, Grade III (restrictive pattern), consistent with markedly increased left atria l pressure. The transmitral spectral Doppler flow pattern is suggestive of restrictive physiology. Ratio E/E'= 20 The right ventricular systolic function is normal. The left atrium is mildly dilated. Right atrial size is normal. There is moderate mitral regurgitation. There is mild tricuspid regurgitation. Pulmonary artery systolic pressure is at least 52 mmHg if RA pressure is assumed 3 mmHg Trace to mild aortic regurgitation. Trace pulmonic valvular regurgitation. There is no pericardial effusion. Previous study is not available for comparison Ken Fernando MD 12/01/2018 04:21 PM
--- NOTE | 2018-12-01 18:02 | PN ---
Progress Note (short form) - Note Progress Note: . No H/o SOb, no chest pain or discomfort.There is no history of chest pain or discomfort even at rest or with exertion.Denies history of paroxysmal nocturnal dyspnea or orthopnea, periods of hypoxemia, and on BIPAP specially at night. No history of palpitations, lightheadedness, dizziness, presyncope or syncope. [facility] cannot afford el[facility]is. 30 min. discussion with his son and [id number], regarding the change to warfarin which was done at their request and can always be switched back to eliquis and should appoint one person to coordinatethe patient 's management with the physcians. Active Medications Amiodarone HCl (Cordarone -) 200 mg PO DAILY [facility] Last Admin: 12/01/18 11:00 Dose: 200 mg Apixaban (Eliquis -) 5 mg PO BID [facility] Last Admin: 12/01/18 11:00 Dose: 5 mg Atorvastatin Calcium (Lipitor -) 20 mg PO HS [facility] Last Admin: 11/30/18 21:58 Dose: Not Given Furosemide (Lasix Injection -) 40 mg IVPUSH BID@0600,1400 [facility] Last Admin: 12/01/18 17:31 Dose: 40 mg Metoprolol Succinate (Toprol Xl -) 50 mg PO BID [facility] Last Vital Signs Temp Pulse Resp BP Pulse Ox 98.2 F 84 20 115/63 95 12/02/18 17:00 12/02/18 17:00 12/02/18 17:00 12/02/18 17:00 12/02/18 07:58 General: 88-year-old alert and obese gentleman, who is in no acute distress at the time of examination. Earlier, he had been on a BiPAP. No pallor, cyanosis , clubbing, or jaundice. Neck: Supple. No jugular venous distention. Slightly positive hepatojugular reflux. Carotids were 2+. Upstrokes were normal. No bruits were heard. There was no thyromegaly. No supraclavicular or inframandibular lymphadenopathy. Heart: PMI was in the 5th intercostal space. No heaves or thrills. Heart sounds were distant, S1 was variable, S2 was split. No murmurs were heard. There was an S3 gallop at the apex. Lungs: Fine crepitations at the right base. No other extraneous sounds were heard. Chest: Normal AP diameter. Expansion was symmetrical. Abdomen: No bruits were heard. Bowel sounds were present. Extremities: 1+ pedal edema. There was an ulceration involving the plantar surface of the left foot and there were ecchymotic areas involving the 2nd right toe. Dorsalis pedis and posterior tibial pulses could not be palpated. Femoral pulses were 1 to 2+. CBC, BMP 12/02/18 05:30 12/02/18 05:30 Interpretation Summary 12/01/18 Technically limited study. The left ventricle is normal in size. Left ventricular systolic function is low normal. No regional wall motion abnormalities noted. Ejection fraction= 50-55% Diastolic dysfunction, Grade III (restrictive pattern), consistent with markedly increased left atrial pressure. The transmitral spectral Doppler flow pattern is suggestive of restrictive physiology. Ratio E/E'= 20 The right ventricular systolic function is normal. The left atrium is mildly dilated. The right atrial size is normal. There is moderate mitral regurgitation. There is mild tricuspid regurgitation. Pulmonary artery systolic pressure is at least 52 mmHg if RA pressure is assumed 3 mmHg. Trace to mild aortic regurgitation. Trace pulmonic valvular regurgitation. There is no pericardial effusion. IMPRESSION: 1. Recent congestive heart failure, resolving. 2. Severe left ventricular diastolic dysfunction. 3. Hypertension, hypertensive cardiovascular disease. 4. Intermittent hypoxemia, most likely related to #2. 5. Persistent atrial fibrillation with controlled ventricular response. 6. Sleep apnea needs to be excluded. 7. Hyponatremia. 8. History of hypercholesterolemia. 9. Exogenous obesity. RECOMMENDATIONS: 1. Close follow up of electrolytes. 2. Amiodarone level. 3. If dyspnea and CHF persists dose of lasix may have to be increased. PROGNOSIS: Critical.
[2018-12-01] MEDS: ATORVASTATIN CA 20 MG TABLET (FP) PO SCH (22:01)
[2018-12-02] MEDS: FUROSEMIDE 40 MG/4 ML INJECTABLE VIAL IVPUSH SCH ×2 (06:14→13:50)
[2018-12-02 07:34] LABS: BASO % 0.6 % (0-2.0); EOS % 1.9 % (0-4.5); HEMOGLOBIN 13.8 GM/dL (11.7-16.9); LYMPH % 18.6 % (8-40); MCH 31.5 pg (25.7-33.7); MCHC 34.5 g/dl (32.0-35.9); MEAN CELL VOLUME 91.3 fl (80-96); MEAN PLT VOLUME 7.5 fl (7.5-11.1); MONO % 13.5 % (3.8-10.2); NEUT % 65.4 % (42.8-82.8); PLATELET COUNT 278 K/MM3 (134-434); RBC 4.38 M/mm3 (4.00-5.60); RDW 13.8 % (11.9-15.9); WHITE BLOOD COUNT 11.5 K/mm3 (4.0-10.0)
[2018-12-02 07:47] LABS: ALBUMIN 3.4 g/dl (3.4-5.0); ALK PHOS 76 U/L (45-117); ANION GAP 10 MMOL/L (8-16); BLOOD UREA NITROGEN 20 mg/dL (7-18); CALCIUM 8.9 mg/dL (8.5-10.1); CHLORIDE 87 mmol/L (98-107); CO2 29 mmol/L (21-32); CREATININE 0.9 mg/dL (0.55-1.3); GLUCOSE,RANDOM 77 mg/dL (74-106); MAGNESIUM 2.1 mg/dL (1.8-2.4); PHOSPHOROUS 3.1 mg/dL (2.5-4.9); POTASSIUM 3.6 mmol/L (3.5-5.1); SGOT/AST 43 U/L (15-37); SGPT/ALT 43 U/L (13-61); SODIUM 126 mmol/L (136-145); TOT PROT 7.9 g/dl (6.4-8.2)
[2018-12-02] MEDS: ENOXAPARIN NA (PORCINE) 100 MG/1 ML DISP.SYRIN SQ SCH ×2 (09:21→21:14)
[2018-12-02] MEDS: AMIODARONE HCL 200 MG TABLET (FP) PO SCH (09:21)
[2018-12-02] MEDS ORDERED: POTASSIUM CHLORIDE TABS 20 MEQ TABLET.ER (FP) PO ONE (09:30)
--- NOTE | 2018-12-02 11:21 | PN ---
Physical Exam: SUBJECTIVE: Patient seen and examined, breathing improved, no new complaints. OBJECTIVE: Vital Signs Period Temp Pulse Resp BP Sys/Go Pulse Ox Last 24 Hr 97.8 F-98.4 F 59-80 18-26 100-146/53-88 92-98 Intake & Output 11/29/18 11/30/18 12/01/18 12/02/18 23:59 23:59 23:59 23:59 Intake Total 280 260 Output Total 600 3375 550 Balance -600 -3095 -290 Weight 210 lb 235 lb 6.4 oz 236 lb 3.2 oz GENERAL: sitting in bed in no acute distress, no further tachypnea or use of accessory muscles of respiration neck: soft, supple, neck vein distension Chest; Improved basilar rales and air entry, no wheezing Abdomen:soft, NT, improved distension Extremities: improved pedal edema Laboratory Results - last 24 hr 12/02/18 12/02/18 05:30 05:30 WBC 11.5 H RBC 4.38 Hgb 13.8 Hct 40.0 MCV 91.3 MCH 31.5 MCHC 34.5 RDW 13.8 Plt Count 278 MPV 7.5 Absolute Neuts (auto) 7.5 Neutrophils % 65.4 Lymphocytes % 18.6 D Monocytes % 13.5 H Eosinophils % 1.9 D Basophils % 0.6 Nucleated RBC % 0 Sodium 126 L Potassium 3.6 Chloride 87 L Carbon Dioxide 29 Anion Gap 10 BUN 20 H Creatinine 0.9 Creat Clearance w eGFR 79.45 Random Glucose 77 Calcium 8.9 Phosphorus 3.1 Magnesium 2.1 Total Bilirubin 1.0 AST 43 H ALT 43 Alkaline Phosphatase 76 Total Protein 7.9 Albumin 3.4 Active Medications Generic Name Dose Route Start Last Admin Trade Name Freq PRN Reason Stop Dose Admin Amiodarone HCl 200 mg 12/01/18 10:00 12/02/18 09:21 Cordarone - PO 200 mg DAILY JULIAN Administration Atorvastatin Calcium 20 mg 11/30/18 22:00 12/01/18 22:01 Lipitor - PO 20 mg HS JULIAN Administration Enoxaparin Sodium 100 mg 12/02/18 10:00 12/02/18 09:21 Lovenox - SQ 100 mg BID JULIAN Administration Furosemide 40 mg 12/01/18 06:00 12/02/18 06:14 Lasix Injection - IVPUSH 40 mg BID@0600,1400 JULIAN Administration Metoprolol Succinate 50 mg 12/01/18 22:00 12/02/18 09:21 Toprol Xl - PO 50 mg BID [facility] Administration Warfarin Sodium 5 mg 12/02/18 18:00 Coumadin - PO DAILY@1800 [facility] Telemetry: nighttime bradycardia and hypoxia ASSESSMENT/PLAN: 88 yom with PMHx of HTN, HLD, recently diagnosed Atrial fibrillation on Eliquis/ Amiodarone admitted with ACute CHF exacerbation -Acute CHF exacerbation, systolic vs diastolic vs from paroxysmal Afib with RVR -Acute hypoxic respiratory failure, suspected from above -Recentaly diagnosed Atrial fibrillation -Hypervolumic hypernatremia -Suspect underlying PITO -HTN -HLD -Plan: Markedly improved. Transition to po lasix in [address]. [address] Cortez, patient unable to afford eliquis. Will place on lovenox/coumadin. Discussed with nursing to provide lovenox teaching to patient/family, patient agreable. Also Dr. Cortez recommending CT chest to assess for amiodarone toxicity, given ongoing hypoxia. CT chest. Overnight bradycardia/hypoxia, suspect underlying PITO. Pulmonary consult. 2D echo noted. ACS ruled out. Still in Afib. Continue statin. Amiodarone per cardiology. Metoprolol decreased. resume amlodipine based on hemodynamics. d/c eliquis, start on lovenox/coumadin. Patient aware of need for close INR monitoring with PCP or finish off operator after dc. Na improved. Dispo anticipate home +/- services/home oxygen in 24-48 hours if improved. Plan discussed with patient and ED nurse in detail, all questions answered. Care co-ordinated with Dr. Cortez. Visit type - Emergency Visit Emergency Visit: Yes ED Registration Date: 11/30/18 Care time: The patient presented to the Emergency Department on the above date and was hospitalized for further evaluation of their emergent condition. - New Patient This patient is new to me today: No - Critical Care Critical Care patient: No - Discharge Referral Referred to [facility] Med P.C.: No
--- NOTE | 2018-12-02 12:50 | PN ---
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
--- NOTE | 2018-12-02 13:23 | CONS ---
PULMONARY CONSULTATION DATE OF CONSULTATION: 12/02/2018 REFERRING PHYSICIAN: Kishor Gramajo MD HISTORY OF PRESENT ILLNESS: The patient is an 88-year-old, white male with past medical history of atrial fibrillation, pulmonary hypertension, hypertension, hyperlipidemia, admitted to [facility] with complaint of a 1- month history of increasing shortness of breath and dyspnea on exertion. Patient states that he was doing well, until 3 to 4 weeks prior to admission. He started noticing increasing shortness of breath with exertion. He denied any complaint of chest pain, nausea, vomiting or diaphoresis associated with this. He also noted increasing lower extremity edema. For the past week prior to admission, he started developing severe dyspnea with minimal exertion, as well as increasing lower extremity edema, as well as orthopnea. He denied any chest pain, again, nausea or vomiting. He presented to the emergency room with the above. In the ER, he was felt to be hypoxic in congestive heart failure. He was placed on BiPAP. He was given Lasix and transferred up to the medical floor for further management. Patient underwent an echocardiogram on December 01 which revealed evidence of severe diastolic dysfunction with grade 3 restrictive pattern with a mildly dilated left atrium, moderate mitral regurgitation, and pulmonary artery systolic pressure of 52. Patient denies any history of COPD or asthma. He has a history of tobacco for approximately 10 years; quit 40 years ago. 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 He denies any recent travel. There is no history of DVT or PE in the past. PAST MEDICAL HISTORY: Again, includes hypertension, hyperlipidemia, permanent atrial fibrillation. REVIEW OF SYSTEMS: Positive orthopnea. Positive dyspnea. Positive hypoxia. No chest pain. No palpitations. No abdominal pain. Positive lower extremity edema. CURRENT MEDICATIONS: Include Cordarone, Lovenox, Coumadin, Toprol, Lipitor, and Lasix IV. PHYSICAL EXAMINATION: General: The patient is a well-developed, well-nourished male, awake, alert, mildly dyspneic, but in no acute distress. Vital Signs: He is afebrile, blood pressure is 142/88, respiratory rate is 22, O2 saturation is 95% on 4 L. HEENT: Exam is normocephalic, atraumatic. Neck: Supple. Heart: Irregular, irregular S1 and S2. Chest: Bibasilar crackles. Abdomen: Soft. Bowel sounds are positive. Extremities: Bilateral lower extremity edema. LABORATORY DATA: WBC is 11.5, hemoglobin 13.8, hematocrit 40, platelet count is 278,000. INR is 1.43. Serum sodium is 126, BUN 20, creatinine 0.9. BNP is 1401. IMAGING: Chest CT reveals moderate-sized, bilateral pleural effusions, increased pulmonary vascular congestion and lower lobe atelectatic changes, multiple hepatic cysts. IMPRESSION: 1. Acute hypoxemic respiratory failure, secondary to anemia of chronic diastolic heart failure. 2. Severe pulmonary hypertension. 3. Permanent atrial fibrillation. 4. Hyponatremia. 5. Hypertension. 6. Hyperlipidemia. 7. Rule out possible obstructive sleep apnea. PLAN: IV Lasix. Supplemental O2. Daily weights. Monitor O2 saturations prior to discharge to determine whether patient is a candidate and requires home O2. Would consider outpatient sleep studies. Monitor serum sodium and electrolytes. ERIKA OCAMPO M.D. [id number] MTDD
[2018-12-02] MEDS: WARFARIN NA 5 MG TABLET (UD) PO SCH (17:39)
[2018-12-02] MEDS: ATORVASTATIN CA 20 MG TABLET (FP) PO SCH (21:13)
[2018-12-03] MEDS: FUROSEMIDE 40 MG/4 ML INJECTABLE VIAL IVPUSH SCH ×2 (05:11→13:26)
[2018-12-03 07:47] LABS: INR 1.1 (0.83-1.09)
[2018-12-03 08:02] LABS: EOS % 2.8 % (0-4.5); HEMATOCRIT 40.3 % (35.4-49); HEMOGLOBIN 14.1 GM/dL (11.7-16.9); LYMPH % 20.4 % (8-40); MCHC 35.1 g/dl (32.0-35.9); MEAN PLT VOLUME 7.5 fl (7.5-11.1); MONO % 12.6 % (3.8-10.2); NEUT % 63.2 % (42.8-82.8); PLATELET COUNT 300 K/MM3 (134-434); RBC 4.43 M/mm3 (4.00-5.60); RDW 14.1 % (11.9-15.9); WHITE BLOOD COUNT 10.3 K/mm3 (4.0-10.0)
[2018-12-03 08:10] LABS: ALBUMIN 3.3 g/dl (3.4-5.0); ALK PHOS 92 U/L (45-117); ANION GAP 7 MMOL/L (8-16); BILIRUBIN,TOTAL 0.7 mg/dL (0.2-1); BLOOD UREA NITROGEN 21 mg/dL (7-18); CALCIUM 8.7 mg/dL (8.5-10.1); CHLORIDE 88 mmol/L (98-107); CO2 34 mmol/L (21-32); GLUCOSE,RANDOM 80 mg/dL (74-106); POTASSIUM 3.8 mmol/L (3.5-5.1); SGOT/AST 40 U/L (15-37); SGPT/ALT 43 U/L (13-61); SODIUM 128 mmol/L (136-145); TOT PROT 7.8 g/dl (6.4-8.2)
--- NOTE | 2018-12-03 10:00 | PN ---
Progress Note, Physician History of Present Illness: pulmonary alert,feeling better,less dyspneic,slept well - Current Medication List Current Medications: Active Medications Amiodarone HCl (Cordarone -) 200 mg PO DAILY [facility] Last Admin: 12/02/18 09:21 Dose: 200 mg Atorvastatin Calcium (Lipitor -) 20 mg PO HS [facility] Last Admin: 12/02/18 21:13 Dose: 20 mg Enoxaparin Sodium (Lovenox -) 100 mg SQ BID [facility] Last Admin: 12/02/18 21:14 Dose: 100 mg Furosemide (Lasix Injection -) 40 mg IVPUSH BID@0600,1400 [facility] Last Admin: 12/03/18 05:11 Dose: 40 mg Metoprolol Succinate (Toprol Xl -) 50 mg PO BID [facility] Last Admin: 12/02/18 21:13 Dose: 50 mg Warfarin Sodium (Coumadin -) 5 mg PO DAILY@1800 [facility] Last Admin: 12/02/18 17:39 Dose: 5 mg - Objective Vital Signs: Vital Signs Temperature 98.0 F 12/03/18 09:00 Pulse Rate 64 12/03/18 09:31 Respiratory Rate 16 12/03/18 09:00 Blood Pressure 123/76 12/03/18 09:00 O2 Sat by Pulse Oximetry (%) 97 12/03/18 09:31 Constitutional: Yes: Well Nourished, Calm Eyes: Yes: WNL HENT: Yes: WNL Neck: Yes: WNL Cardiovascular: Yes: Pulse Irregular, S1, S2 Respiratory: Yes: Rales (bibasilar rales) Gastrointestinal: Yes: Normal Bowel Sounds, Soft Extremities: Yes: WNL Edema: Yes Labs: CBC, BMP 12/03/18 05:48 12/03/18 05:48 INR, PTT INR 1.10 (0.83-1.09) H 12/03/18 05:48 Problem List - Problems (1) Acute on chronic diastolic CHF (congestive heart failure), NYHA class 3 Code(s): I50.33 - ACUTE ON CHRONIC DIASTOLIC (CONGESTIVE) HEART FAILURE (2) Afib Code(s): I48.91 - UNSPECIFIED ATRIAL FIBRILLATION (3) Acute hypoxemic respiratory failure Code(s): J96.01 - ACUTE RESPIRATORY FAILURE WITH HYPOXIA (4) HTN (hypertension) Code(s): I10 - ESSENTIAL (PRIMARY) HYPERTENSION (5) Hyponatremia Code(s): E87.1 - HYPO-OSMOLALITY AND HYPONATREMIA Assessment/Plan IMP ACUTE HYPOXEMIC RESPIRATORY FAILURE IMPROVING ACUTE ON CHRONIC DIASTOLIC HF AFIB PULMONARY HTN HYPONATREMIA improving HTN HLD 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 PLAN CONTINUE IV LASIX SUPPLEMENTAL O2 DAILY WT MONITOR LYTES,NA F/U 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
[2018-12-03] MEDS: AMIODARONE HCL 200 MG TABLET (FP) PO SCH (10:21)
[2018-12-03] MEDS: ENOXAPARIN NA (PORCINE) 100 MG/1 ML DISP.SYRIN SQ SCH ×2 (10:22→22:12)
--- NOTE | 2018-12-03 13:52 | PN ---
Physical Exam: SUBJECTIVE: Patient seen and examined, breathing improved, feels well. OBJECTIVE: Vital Signs Period Temp Pulse Resp BP Sys/Go Pulse Ox Last 24 Hr 97.8 F-98.2 F 58-84 15-22 115-142/63-79 95-97 Intake & Output 11/30/18 12/01/18 12/02/18 12/03/18 23:59 23:59 23:59 23:59 Intake Total 280 580 240 Output Total 600 3375 1550 1400 Balance -600 -3095 -970 -1160 Weight 210 lb 235 lb 6.4 oz 236 lb 3.2 oz 237 lb 6.4 oz GENERAL:sitting in bed, resolved tachypnea, able to speak in full sentences CVS:S1S2 irregular Chest: decreased breath sounds at bases, improved rales, no wheezing Abdomen:soft, NT, ND Extremities: improved pedal edema Neck: soft, supple, no JVD visualized Laboratory Results - last 24 hr 12/03/18 12/03/18 12/03/18 05:48 05:48 05:48 WBC 10.3 H RBC 4.43 Hgb 14.1 Hct 40.3 MCV 91.0 MCH 32.0 MCHC 35.1 RDW 14.1 Plt Count 300 MPV 7.5 Absolute Neuts (auto) 6.5 Neutrophils % 63.2 Lymphocytes % 20.4 Monocytes % 12.6 H Eosinophils % 2.8 Basophils % 1.0 Nucleated RBC % 0 PT with INR 13.00 INR 1.10 H Sodium 128 L Potassium 3.8 Chloride 88 L Carbon Dioxide 34 H Anion Gap 7 L BUN 21 H Creatinine 1.0 Creat Clearance w eGFR 70.36 Random Glucose 80 Calcium 8.7 Total Bilirubin 0.7 AST 40 H ALT 43 Alkaline Phosphatase 92 Total Protein 7.8 Albumin 3.3 L Active Medications Generic Name Dose Route Start Last Admin Trade Name Freq PRN Reason Stop Dose Admin Amiodarone HCl 200 mg 12/01/18 10:00 12/03/18 10:21 Cordarone - PO 200 mg DAILY JULIAN Administration Atorvastatin Calcium 20 mg 11/30/18 22:00 12/02/18 21:13 Lipitor - PO 20 mg HS JULIAN Administration Enoxaparin Sodium 100 mg 12/02/18 10:00 12/03/18 10:22 Lovenox - SQ 100 mg BID JULIAN Administration Furosemide 40 mg 12/01/18 06:00 12/03/18 13:26 Lasix Injection - IVPUSH 40 mg BID@0600,1400 JULIAN Administration Metoprolol Succinate 50 mg 12/01/18 22:00 12/03/18 10:21 Toprol Xl - PO 50 mg BID JULIAN Administration Warfarin Sodium 5 mg 12/02/18 18:00 12/02/18 17:39 Coumadin - PO 5 mg DAILY@[address] chest images and results reviewed Telemetry Afib rate controlled, night time early AM lisa 40s ASSESSMENT/PLAN: 88 yom with PMHx of HTN, HLD, recently diagnosed Atrial fibrillation on Eliquis/ Amiodarone admitted with ACute CHF exacerbation -Acute CHF exacerbation, systolic vs diastolic vs from paroxysmal Afib with RVR -Acute hypoxic respiratory failure, suspected from above -Recentaly diagnosed Atrial fibrillation -Hypervolumic hypernatremia -Suspect underlying PITO -HTN -HLD -Plan: Continues to improve. CT chest with pleural effusions, non concerns for amiodarone toxicity. Continue IV diuresis for 24-[address] Cortez, patient unable to afford eliquis. Lovenox/coumadin. Patient agreable to home Lovenox injections, RN to provide ongoing education. Pulmonary input noted, will need outpatient follow up for sleep study. 2D echo noted. ACS ruled out. Still in Afib. Continue statin. Amiodarone per cardiology. Metoprolol decreased. Resume amlodipine based on hemodynamics. Patient aware of need for close INR monitoring with PCP or hide worker after dc. Na improved. Dispo anticipate home +/- services/home oxygen in 48 hours if continues to improve. Will need home oxygen needs assessment prior to dc. PT eval. Visit type - Emergency Visit Emergency Visit: Yes ED Registration Date: 11/30/18 Care time: The patient presented to the Emergency Department on the above date and was hospitalized for further evaluation of their emergent condition. - New Patient This patient is new to me today: No - Critical Care Critical Care patient: No - Discharge Referral Referred to [facility] Med P.C.: No
--- NOTE | 2018-12-03 14:14 | PN ---
Progress Note (short form) - Note Progress Note: . No H/o SOB, no chest pain or discomfort.There is no history of chest pain or discomfort even at rest or with exertion.Denies history of paroxysmal nocturnal dyspnea or orthopnea, periods of hypoxemia, and on BIPAP specially at night. No history of palpitations, lightheadedness, dizziness, presyncope or syncope. Started in coumadin by hospitalist as patient cannot afford eliquis. On O2 Active Medications Generic Name Dose Route Start Last Admin Trade Name Damon PRN Reason Stop Dose Admin Amiodarone HCl 200 mg 12/01/18 10:00 12/03/18 10:21 Cordarone - PO 200 mg DAILY JULIAN Administration Atorvastatin Calcium 20 mg 11/30/18 22:00 12/02/18 21:13 Lipitor - PO 20 mg HS JULIAN Administration Enoxaparin Sodium 100 mg 12/02/18 10:00 12/03/18 10:22 Lovenox - SQ 100 mg BID JULIAN Administration Furosemide 40 mg 12/01/18 06:00 12/03/18 13:26 Lasix Injection - IVPUSH 40 mg BID@0600,1400 JULIAN Administration Metoprolol Succinate 50 mg 12/01/18 22:00 12/03/18 10:21 Toprol Xl - PO 50 mg BID JULIAN Administration Warfarin Sodium 5 mg 12/02/18 18:00 12/02/18 17:39 Coumadin - PO 5 mg DAILY@1800 JULINA Administration Last Vital Signs Temp Pulse Resp BP Pulse Ox 98.0 F 64 irregular 16 123/76 97 12/03/18 09:00 12/03/18 09:31 12/03/18 09:00 12/03/18 09:00 12/03/18 09:31 General: 88-year-old alert and obese gentleman, who is in no acute distress at the time of examination. Earlier, he had been on a BiPAP. No pallor, cyanosis , clubbing, or jaundice. Neck: Supple. No jugular venous distention.-Ve. hepatojugular reflux. Carotids were 2+. Upstrokes were normal. No bruits were heard. There was no thyromegaly. No supraclavicular or inframandibular lymphadenopathy. Heart: PMI was in the 5th intercostal space. No heaves or thrills. Heart sounds were distant, S1 was variable, S2 was split. No murmurs were heard. No gallops heard. Lungs: Fine crepitations at the left base. No other extraneous sounds were heard. Chest: Normal AP diameter. Expansion was symmetrical. Abdomen: No bruits were heard. Bowel sounds were present. Extremities: trace pedal edema. There was an ulceration involving the plantar surface of the left foot and there were ecchymotic areas involving the 2nd right toe. Dorsalis pedis and posterior tibial pulses could not be palpated. Femoral pulses were 1 to 2+. CBC, BMP 12/03/18 05:48 12/03/18 05:48 Interpretation Summary 12/01/18 Technically limited study. The left ventricle is normal in size. Left ventricular systolic function is low normal. No regional wall motion abnormalities noted. Ejection fraction= 50-55% Diastolic dysfunction, Grade III (restrictive pattern), consistent with markedly increased left atrial pressure. The transmitral spectral Doppler flow pattern is suggestive of restrictive physiology. Ratio E/E'= 20 The right ventricular systolic function is normal. The left atrium is mildly dilated. The right atrial size is normal. There is moderate mitral regurgitation. There is mild tricuspid regurgitation. Pulmonary artery systolic pressure is at least 52 mmHg if RA pressure is assumed 3 mmHg. Trace to mild aortic regurgitation. Trace pulmonic valvular regurgitation. There is no pericardial effusion. IMPRESSION: 1. Recent congestive heart failure, resolving. 2. Severe left ventricular diastolic dysfunction. 3. Hypertension, hypertensive cardiovascular disease. 4. Intermittent hypoxemia, most likely related to #2. 5. Persistent atrial fibrillation with controlled ventricular response. 6. Sleep apnea needs to be excluded. 7. Hyponatremia. 8. History of hypercholesterolemia. 9. Exogenous obesity. RECOMMENDATIONS: 1. Close follow up of electrolytes. 2. Amiodarone level. 3. Increase ambulation. 4. Will consider RIVERA and cardioversion, if remains in atrial fib. PROGNOSIS: Critical.
[2018-12-03] MEDS: WARFARIN NA 5 MG TABLET (UD) PO SCH (17:28)
[2018-12-03] MEDS: ATORVASTATIN CA 20 MG TABLET (FP) PO SCH (22:12)
[2018-12-04] MEDS: FUROSEMIDE 40 MG/4 ML INJECTABLE VIAL IVPUSH SCH ×2 (05:09→15:44)
[2018-12-04 07:49] LABS: INR 1.15 (0.83-1.09); PROTHROMBIN TIME (PATIENT) 13.6 SEC (9.7-13.0)
[2018-12-04 10:01] LABS: ANION GAP 6 MMOL/L (8-16); BLOOD UREA NITROGEN 22 mg/dL (7-18); CALCIUM 8.8 mg/dL (8.5-10.1); CHLORIDE 91 mmol/L (98-107); CO2 33 mmol/L (21-32); CREATININE 0.9 mg/dL (0.55-1.3); GLUCOSE,RANDOM 84 mg/dL (74-106); PHOSPHOROUS 3.9 mg/dL (2.5-4.9); POTASSIUM 3.6 mmol/L (3.5-5.1); SODIUM 130 mmol/L (136-145)
[2018-12-04] MEDS: AMIODARONE HCL 200 MG TABLET (FP) PO SCH (10:31)
[2018-12-04] MEDS: ENOXAPARIN NA (PORCINE) 100 MG/1 ML DISP.SYRIN SQ SCH ×2 (10:31→21:16)
--- NOTE | 2018-12-04 11:42 | PN ---
Progress Note, Physician History of Present Illness: pulmonary ' alert,feeling better slept well on bipap - Current Medication List Current Medications: Active Medications Amiodarone HCl (Cordarone -) 200 mg PO DAILY [facility] Last Admin: 12/04/18 10:31 Dose: 200 mg Atorvastatin Calcium (Lipitor -) 20 mg PO HS [facility] Last Admin: 12/03/18 22:12 Dose: 20 mg Enoxaparin Sodium (Lovenox -) 100 mg SQ BID [facility] Last Admin: 12/04/18 10:31 Dose: 100 mg Furosemide (Lasix Injection -) 40 mg IVPUSH BID@0600,1400 [facility] Last Admin: 12/04/18 05:09 Dose: 40 mg Metoprolol Succinate (Toprol Xl -) 50 mg PO BID [facility] Last Admin: 12/04/18 10:31 Dose: 50 mg Warfarin Sodium (Coumadin -) 5 mg PO DAILY@1800 [facility] Last Admin: 12/03/18 17:28 Dose: 5 mg - Objective Vital Signs: Vital Signs Temperature 98.4 F 12/04/18 05:00 Pulse Rate 67 12/04/18 05:00 Respiratory Rate 20 12/04/18 05:00 Blood Pressure 121/68 12/04/18 05:00 O2 Sat by Pulse Oximetry (%) 96 12/04/18 09:00 Constitutional: Yes: Well Nourished, Calm Eyes: Yes: WNL HENT: Yes: WNL Neck: Yes: WNL Cardiovascular: Yes: Pulse Irregular, S1, S2 Respiratory: Yes: Rales (bibasilar rales) Gastrointestinal: Yes: Normal Bowel Sounds, Soft Extremities: Yes: WNL Edema: Yes Labs: 12/04/18 05:40 INR, PTT INR 1.15 (0.83-1.09) H 12/04/18 05:40 Problem List - Problems (1) Acute on chronic diastolic CHF (congestive heart failure), NYHA class 3 Code(s): I50.33 - ACUTE ON CHRONIC DIASTOLIC (CONGESTIVE) HEART FAILURE (2) Afib Code(s): I48.91 - UNSPECIFIED ATRIAL FIBRILLATION (3) Acute hypoxemic respiratory failure Code(s): J96.01 - ACUTE RESPIRATORY FAILURE WITH HYPOXIA (4) HTN (hypertension) Code(s): I10 - ESSENTIAL (PRIMARY) HYPERTENSION (5) Hyponatremia Code(s): E87.1 - HYPO-OSMOLALITY AND HYPONATREMIA Assessment/Plan IMP ACUTE HYPOXEMIC RESPIRATORY FAILURE IMPROVING ACUTE ON CHRONIC DIASTOLIC HF AFIB PULMONARY HTN HYPONATREMIA improving HTN HLD 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 PLAN IV LASIX SUPPLEMENTAL O2 DAILY WT MONITOR LYTES,NA F/U 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
--- NOTE | 2018-12-04 14:45 | PN ---
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 Walked today without dyspnea tele: afib, rate ok Current Medications Amiodarone HCl (Cordarone -) 200 mg PO DAILY [facility] Last Admin: 12/04/18 10:31 Dose: 200 mg Atorvastatin Calcium (Lipitor -) 20 mg PO HS [facility] Last Admin: 12/03/18 22:12 Dose: 20 mg Enoxaparin Sodium (Lovenox -) 100 mg SQ BID [facility] Last Admin: 12/04/18 10:31 Dose: 100 mg Furosemide (Lasix Injection -) 40 mg IVPUSH BID@0600,1400 [facility] Last Admin: 12/04/18 05:09 Dose: 40 mg Metoprolol Succinate (Toprol Xl -) 50 mg PO BID [facility] Last Admin: 12/04/18 10:31 Dose: 50 mg Warfarin Sodium (Coumadin -) 5 mg PO DAILY@1800 [facility] Last Admin: 12/03/18 17:28 Dose: 5 mg Vital Signs Period Temp Pulse Resp BP Sys/Go Pulse Ox Last 24 Hr 98.1 F-98.7 F 65-80 20-20 121-133/68-76 92-98 General: NAD Neck: no JVD Heart: nl S1 S2, no murmur Lungs: crackles at bases raheem Chest: Normal AP diameter. Expansion was symmetrical. Abdomen: No bruits were heard. Bowel sounds were present. Extremities: trace pedal edema. There was an ulceration involving the plantar surface of the left foot and there were ecchymotic areas involving the 2nd right toe. Dorsalis pedis and posterior tibial pulses could not be palpated. Femoral pulses were 1 to 2+. Interpretation Summary 12/01/18 Technically limited study. The left ventricle is normal in size. Left ventricular systolic function is low normal. No regional wall motion abnormalities noted. Ejection fraction= 50-55% Diastolic dysfunction, Grade III (restrictive pattern), consistent with markedly increased left atrial pressure. The transmitral spectral Doppler flow pattern is suggestive of restrictive physiology. Ratio E/E'= 20 The right ventricular systolic function is normal. The left atrium is mildly dilated. The right atrial size is normal. There is moderate mitral regurgitation. There is mild tricuspid regurgitation. Pulmonary artery systolic pressure is at least 52 mmHg if RA pressure is assumed 3 mmHg. Trace to mild aortic regurgitation. Trace pulmonic valvular regurgitation. There is no pericardial effusion. IMPRESSION: 1. Recent congestive heart failure, resolving. 2. Severe left ventricular diastolic dysfunction. 3. Hypertension, hypertensive cardiovascular disease. 4. Intermittent hypoxemia, most likely related to #2. 5. Persistent atrial fibrillation with controlled ventricular response. 6. Sleep apnea needs to be excluded. 7. Hyponatremia. 8. History of hypercholesterolemia. 9. Exogenous obesity. RECOMMENDATIONS: 1. Close follow up of electrolytes. 2. Amiodarone level. 3. Increase ambulation, wean O2 as tolerated 4. In atrial fibrillation with rate controlled, continue amiodarone, metoprolol. Defer RIVERA/CV. 5. Continue IV lasix, monitor Cr, lytes, daily weights 6. On warfarin, bridging with lovenox. Dose per INR (unable to use NOAC due to cost)
[2018-12-04] MEDS: WARFARIN NA 5 MG TABLET (UD) PO SCH (17:17)
--- NOTE | 2018-12-04 19:19 | PN ---
Progress Note, Physician Chief Complaint: Mr Hardy says he is feeling better. Has some coughing but otherwise denies cp , sob, n/v. - Current Medication List Current Medications: Active Medications Amiodarone HCl (Cordarone -) 200 mg PO DAILY [facility] Last Admin: 12/04/18 10:31 Dose: 200 mg Atorvastatin Calcium (Lipitor -) 20 mg PO HS [facility] Last Admin: 12/03/18 22:12 Dose: 20 mg Docusate Sodium (Colace -) 100 mg PO BID [facility] Enoxaparin Sodium (Lovenox -) 100 mg SQ BID [facility] Last Admin: 12/04/18 10:31 Dose: 100 mg Furosemide (Lasix Injection -) 40 mg IVPUSH BID@0600,1400 [facility] Last Admin: 12/04/18 15:44 Dose: 40 mg Metoprolol Succinate (Toprol Xl -) 50 mg PO BID [facility] Last Admin: 12/04/18 10:31 Dose: 50 mg Polyethylene Glycol (Miralax (For Daily Use) -) 17 gm PO BID [facility] Senna (Senna -) 2 tab PO [facility] Warfarin Sodium (Coumadin -) 5 mg PO DAILY@1800 [facility] Last Admin: 12/04/18 17:17 Dose: 5 mg - Objective Vital Signs: Vital Signs Temperature 36.8 C 12/04/18 17:00 Pulse Rate 73 12/04/18 17:00 Respiratory Rate 20 12/04/18 17:00 Blood Pressure 116/60 12/04/18 17:00 O2 Sat by Pulse Oximetry (%) 98 12/04/18 16:05 Constitutional: Yes: Well Nourished, No Distress, Calm Cardiovascular: Yes: Pulse Irregular. No: Tachycardia, Gallop, Murmur, Rub Respiratory: Yes: Regular, CTA Bilaterally, On Nasal O2. No: Rales, Rhonchi, Wheezes Gastrointestinal: Yes: Normal Bowel Sounds, Soft. No: Distention, Tenderness Extremities: Yes: WNL Edema: Yes Edema: LLE: 2+, RLE: 2+ Labs: CBC, BMP 12/03/18 05:48 12/04/18 05:40 INR, PTT INR 1.15 (0.83-1.09) H 12/04/18 05:40 Problem List - Problems (1) Acute on chronic diastolic CHF (congestive heart failure), NYHA class 3 Assessment/Plan: -cardiology following -continue IV lasix -improving Code(s): I50.33 - ACUTE ON CHRONIC DIASTOLIC (CONGESTIVE) HEART FAILURE (2) Acute hypoxemic respiratory failure Assessment/Plan: -continue oxygen support -may need home oxygen Code(s): J96.01 - ACUTE RESPIRATORY FAILURE WITH HYPOXIA (3) Afib Assessment/Plan: -rate controlled -continue lovenox bridge with coumadin Code(s): I48.91 - UNSPECIFIED ATRIAL FIBRILLATION Qualifiers: Atrial fibrillation type: chronic Qualified Code(s): I48.2 - Chronic atrial fibrillation (4) HTN (hypertension) Assessment/Plan: -controlled Code(s): I10 - ESSENTIAL (PRIMARY) HYPERTENSION
[2018-12-04] MEDS: SENNOSIDES 8.6MG TABLET (FP) PO SCH (21:15)
[2018-12-04] MEDS: DOCUSATE SODIUM 100 MG CAPSULE (FP) PO SCH (21:16)
[2018-12-04] MEDS: ATORVASTATIN CA 20 MG TABLET (FP) PO SCH (21:18)
[2018-12-04] MEDS: POLYETHYLENE GLYCOL 3350 119 GM BTL PO SCH (21:21)
[2018-12-05] MEDS: FUROSEMIDE 40 MG/4 ML INJECTABLE VIAL IVPUSH SCH ×2 (05:38→14:28)
[2018-12-05 07:13] LABS: BASO % 1.2 % (0-2.0); EOS % 3.9 % (0-4.5); HEMATOCRIT 39.6 % (35.4-49); HEMOGLOBIN 13.6 GM/dL (11.7-16.9); LYMPH % 22.3 % (8-40); MCH 31.6 pg (25.7-33.7); MCHC 34.2 g/dl (32.0-35.9); MEAN CELL VOLUME 92.5 fl (80-96); MEAN PLT VOLUME 7.4 fl (7.5-11.1); MONO % 13.5 % (3.8-10.2); NEUT % 59.1 % (42.8-82.8); PLATELET COUNT 302 K/MM3 (134-434); RBC 4.28 M/mm3 (4.00-5.60); RDW 14.2 % (11.9-15.9); WHITE BLOOD COUNT 8.7 K/mm3 (4.0-10.0)
[2018-12-05 07:48] LABS: ANION GAP 8 MMOL/L (8-16); BLOOD UREA NITROGEN 23 mg/dL (7-18); CALCIUM 8.8 mg/dL (8.5-10.1); CHLORIDE 92 mmol/L (98-107); CO2 33 mmol/L (21-32); GLUCOSE,RANDOM 86 mg/dL (74-106); MAGNESIUM 2.3 mg/dL (1.8-2.4); PHOSPHOROUS 3.5 mg/dL (2.5-4.9); POTASSIUM 3.9 mmol/L (3.5-5.1); SODIUM 133 mmol/L (136-145)
[2018-12-05 08:05] LABS: INR 1.41 (0.83-1.09); PROTHROMBIN TIME (PATIENT) 16.7 SEC (9.7-13.0)
--- NOTE | 2018-12-05 09:18 | PN ---
Progress Note, Physician Chief Complaint: comfortable. No chest pain or SOB TELE: AF, with periods of bradycardia primarily during sleep hours. - Current Medication List Current Medications: Active Medications Amiodarone HCl (Cordarone -) 200 mg PO DAILY [facility] Last Admin: 12/04/18 10:31 Dose: 200 mg Atorvastatin Calcium (Lipitor -) 20 mg PO [facility] Last Admin: 12/04/18 21:18 Dose: 20 mg Docusate Sodium (Colace -) 100 mg PO BID [facility] Last Admin: 12/04/18 21:16 Dose: 100 mg Enoxaparin Sodium (Lovenox -) 100 mg SQ BID [facility] Last Admin: 12/04/18 21:16 Dose: 100 mg Furosemide (Lasix Injection -) 40 mg IVPUSH BID@0600,1400 [facility] Last Admin: 12/05/18 05:38 Dose: 40 mg Metoprolol Succinate (Toprol Xl -) 50 mg PO BID [facility] Last Admin: 12/04/18 21:18 Dose: 50 mg Polyethylene Glycol (Miralax (For Daily Use) -) 17 gm PO BID [facility] Last Admin: 12/04/18 21:21 Dose: 17 grams Senna (Senna -) 2 tab PO [facility] Last Admin: 12/04/18 21:15 Dose: 2 tab Warfarin Sodium (Coumadin -) 5 mg PO DAILY@1800 [facility] Last Admin: 12/04/18 17:17 Dose: 5 mg - Objective Vital Signs: Vital Signs Temperature 98 F 12/05/18 08:42 Pulse Rate 70 12/05/18 08:42 Respiratory Rate 20 12/05/18 08:42 Blood Pressure 122/73 12/05/18 08:42 O2 Sat by Pulse Oximetry (%) 95 12/05/18 07:25 Constitutional: Yes: Calm Cardiovascular: Yes: Pulse Irregular Respiratory: Yes: CTA Bilaterally Gastrointestinal: Yes: Soft Edema: No Neurological: Yes: Alert, Oriented Labs: CBC, BMP 12/05/18 05:30 12/05/18 05:30 INR, PTT INR 1.41 (0.83-1.09) H 12/05/18 05:30 Laboratory Tests 12/05/18 12/05/18 12/05/18 05:30 05:30 05:30 WBC 8.7 Hgb 13.6 Plt Count 302 INR 1.41 H Sodium 133 L Potassium 3.9 BUN 23 H Creatinine 1.0 Magnesium 2.3 - ....Imaging EKG: Image Reviewed Assessment/Plan IMPRESSION: 1. Recent congestive heart failure, resolving. 2. Severe left ventricular diastolic dysfunction. 3. Hypertension, hypertensive cardiovascular disease. 4. Intermittent hypoxemia, most likely related to #2. 5. Persistent atrial fibrillation with controlled ventricular response. 6. Sleep apnea suspected 7. Hyponatremia. 8. History of hypercholesterolemia. RECOMMENDATIONS: 1. Close follow up of electrolytes. 2. Amiodarone level. 3. Increase ambulation, wean O2 as tolerated 4. In atrial fibrillation with rate controlled, continue amiodarone, metoprolol. Defer RIVERA/CV. 5. Continue IV lasix, monitor Cr, lytes, daily weights seem unreliable but clinically improved. Transition PO Lasix 12/06/18 6. On warfarin, bridging with lovenox. Dose per INR (unable to use NOAC due to cost): Goal INR 2-3
[2018-12-05] MEDS: ENOXAPARIN NA (PORCINE) 100 MG/1 ML DISP.SYRIN SQ SCH ×2 (11:06→21:09)
[2018-12-05] MEDS: DOCUSATE SODIUM 100 MG CAPSULE (FP) PO SCH ×2 (11:06→21:10)
[2018-12-05] MEDS: AMIODARONE HCL 200 MG TABLET (FP) PO SCH (11:06)
[2018-12-05] MEDS: POLYETHYLENE GLYCOL 3350 119 GM BTL PO SCH ×2 (11:07→21:09)
--- NOTE | 2018-12-05 12:08 | PN ---
Progress Note, Physician History of Present Illness: pulmonary alert,no distress,slept well on bipap last night. - Current Medication List Current Medications: Active Medications Amiodarone HCl (Cordarone -) 200 mg PO DAILY [facility] Last Admin: 12/05/18 11:06 Dose: 200 mg Atorvastatin Calcium (Lipitor -) 20 mg PO HS [facility] Last Admin: 12/04/18 21:18 Dose: 20 mg Docusate Sodium (Colace -) 100 mg PO BID [facility] Last Admin: 12/05/18 11:06 Dose: 100 mg Enoxaparin Sodium (Lovenox -) 100 mg SQ BID [facility] Last Admin: 12/05/18 11:06 Dose: 100 mg Furosemide (Lasix Injection -) 40 mg IVPUSH BID@0600,1400 [facility] Last Admin: 12/05/18 05:38 Dose: 40 mg Metoprolol Succinate (Toprol Xl -) 50 mg PO BID [facility] Last Admin: 12/05/18 11:06 Dose: 50 mg Polyethylene Glycol (Miralax (For Daily Use) -) 17 gm PO BID [facility] Last Admin: 12/05/18 11:07 Dose: 17 grams Senna (Senna -) 2 tab PO HS [facility] Last Admin: 12/04/18 21:15 Dose: 2 tab Warfarin Sodium (Coumadin -) 5 mg PO DAILY@1800 [facility] Last Admin: 12/04/18 17:17 Dose: 5 mg - Objective Vital Signs: Vital Signs Temperature 98 F 12/05/18 08:42 Pulse Rate 66 12/05/18 10:00 Respiratory Rate 20 12/05/18 09:00 Blood Pressure 122/73 12/05/18 08:42 O2 Sat by Pulse Oximetry (%) 96 12/05/18 10:00 Constitutional: Yes: Well Nourished, Calm Eyes: Yes: WNL HENT: Yes: WNL Neck: Yes: WNL Cardiovascular: Yes: Pulse Irregular, S1, S2 Respiratory: Yes: Rales (bibasilar crackles) Gastrointestinal: Yes: Normal Bowel Sounds, Soft Extremities: Yes: WNL Edema: Yes Labs: CBC, BMP 12/05/18 05:30 12/05/18 05:30 INR, PTT INR 1.41 (0.83-1.09) H 12/05/18 05:30 Problem List - Problems (1) Acute on chronic diastolic CHF (congestive heart failure), NYHA class 3 Code(s): I50.33 - ACUTE ON CHRONIC DIASTOLIC (CONGESTIVE) HEART FAILURE (2) Afib Code(s): I48.91 - UNSPECIFIED ATRIAL FIBRILLATION (3) Acute hypoxemic respiratory failure Code(s): J96.01 - ACUTE RESPIRATORY FAILURE WITH HYPOXIA (4) HTN (hypertension) Code(s): I10 - ESSENTIAL (PRIMARY) HYPERTENSION (5) Hyponatremia Code(s): E87.1 - HYPO-OSMOLALITY AND HYPONATREMIA Assessment/Plan IMP ACUTE HYPOXEMIC RESPIRATORY FAILURE IMPROVING ACUTE ON CHRONIC DIASTOLIC HF AFIB PULMONARY HTN HYPONATREMIA improving HTN HLD 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 PLAN IV LASIX SUPPLEMENTAL O2 DAILY WT MONITOR LYTES,NA F/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
[2018-12-05] MEDS: WARFARIN NA 5 MG TABLET (UD) PO SCH (17:15)
--- NOTE | 2018-12-05 17:49 | PN ---
Progress Note, Physician Chief Complaint: Mr Hardy says he is feeling good and hoping to go home soon. Denies cp, sob, n /v. - Current Medication List Current Medications: Active Medications Amiodarone HCl (Cordarone -) 200 mg PO DAILY [facility] Last Admin: 12/05/18 11:06 Dose: 200 mg Atorvastatin Calcium (Lipitor -) 20 mg PO [facility] Last Admin: 12/04/18 21:18 Dose: 20 mg Docusate Sodium (Colace -) 100 mg PO BID [facility] Last Admin: 12/05/18 11:06 Dose: 100 mg Enoxaparin Sodium (Lovenox -) 100 mg SQ BID [facility] Last Admin: 12/05/18 11:06 Dose: 100 mg Furosemide (Lasix Injection -) 40 mg IVPUSH BID@0600,1400 [facility] Last Admin: 12/05/18 14:28 Dose: 40 mg Metoprolol Succinate (Toprol Xl -) 50 mg PO BID [facility] Last Admin: 12/05/18 11:06 Dose: 50 mg Polyethylene Glycol (Miralax (For Daily Use) -) 17 gm PO BID [facility] Last Admin: 12/05/18 11:07 Dose: 17 grams Senna (Senna -) 2 tab PO [facility] Last Admin: 12/04/18 21:15 Dose: 2 tab Warfarin Sodium (Coumadin -) 5 mg PO DAILY@1800 [facility] Last Admin: 12/05/18 17:15 Dose: 5 mg - Objective Vital Signs: Vital Signs Temperature 36.7 C 12/05/18 14:00 Pulse Rate 76 12/05/18 14:00 Respiratory Rate 20 12/05/18 09:00 Blood Pressure 138/68 12/05/18 14:00 O2 Sat by Pulse Oximetry (%) 96 12/05/18 10:00 Constitutional: Yes: Well Nourished, No Distress, Calm Cardiovascular: Yes: Pulse Irregular. No: Tachycardia, Gallop, Murmur, Rub Respiratory: Yes: Regular, CTA Bilaterally, On Nasal O2. No: Rales, Rhonchi, Wheezes Gastrointestinal: Yes: Normal Bowel Sounds, Soft. No: Distention, Tenderness Extremities: Yes: WNL Edema: Yes Edema: LLE: 1+, RLE: 1+ Labs: CBC, BMP 12/05/18 05:30 12/05/18 05:30 INR, PTT INR 1.41 (0.83-1.09) H 12/05/18 05:30 Problem List - Problems (1) Acute on chronic diastolic CHF (congestive heart failure), NYHA class 3 Code(s): I50.33 - ACUTE ON CHRONIC DIASTOLIC (CONGESTIVE) HEART FAILURE (2) Acute hypoxemic respiratory failure Code(s): J96.01 - ACUTE RESPIRATORY FAILURE WITH HYPOXIA (3) Afib Code(s): I48.91 - UNSPECIFIED ATRIAL FIBRILLATION Qualifiers: Atrial fibrillation type: chronic Qualified Code(s): I48.2 - Chronic atrial fibrillation (4) HTN (hypertension) Code(s): I10 - ESSENTIAL (PRIMARY) HYPERTENSION Assessment/Plan (1) Acute on chronic diastolic CHF (congestive heart failure), NYHA class 3 Assessment/Plan: -cardiology note reviewed -continue IV lasix -hopefully can transition to oral lasix and begin disposition planning soon Code(s): I50.33 - ACUTE ON CHRONIC DIASTOLIC (CONGESTIVE) HEART FAILURE (2) Acute hypoxemic respiratory failure Assessment/Plan: -continue oxygen support -may need home oxygen Code(s): J96.01 - ACUTE RESPIRATORY FAILURE WITH HYPOXIA (3) Afib Assessment/Plan: -rate controlled -continue lovenox bridge with coumadin -INR not therapeutic Code(s): I48.91 - UNSPECIFIED ATRIAL FIBRILLATION Qualifiers: Atrial fibrillation type: chronic Qualified Code(s): I48.2 - Chronic atrial fibrillation (4) HTN (hypertension) Assessment/Plan: -controlled Code(s): I10 - ESSENTIAL (PRIMARY) HYPERTENSION
[2018-12-05] MEDS: ATORVASTATIN CA 20 MG TABLET (FP) PO SCH (21:07)
[2018-12-05] MEDS: SENNOSIDES 8.6MG TABLET (FP) PO SCH (21:07)
[2018-12-06] MEDS: FUROSEMIDE 40 MG/4 ML INJECTABLE VIAL IVPUSH SCH (05:35)
[2018-12-06 07:26] LABS: BASO % 1.2 % (0-2.0); HEMATOCRIT 41.2 % (35.4-49); HEMOGLOBIN 13.9 GM/dL (11.7-16.9); MCH 31.6 pg (25.7-33.7); MCHC 33.7 g/dl (32.0-35.9); MEAN CELL VOLUME 93.8 fl (80-96); MEAN PLT VOLUME 7.7 fl (7.5-11.1); NEUT % 58.8 % (42.8-82.8); PLATELET COUNT 306 K/MM3 (134-434); RBC 4.39 M/mm3 (4.00-5.60); RDW 14.4 % (11.9-15.9)
[2018-12-06 07:47] LABS: INR 1.74 (0.83-1.09); PROTHROMBIN TIME (PATIENT) 20.6 SEC (9.7-13.0)
[2018-12-06 07:55] LABS: ANION GAP 7 MMOL/L (8-16); BLOOD UREA NITROGEN 25 mg/dL (7-18); CALCIUM 8.9 mg/dL (8.5-10.1); CHLORIDE 96 mmol/L (98-107); CO2 33 mmol/L (21-32); GLUCOSE,RANDOM 83 mg/dL (74-106); MAGNESIUM 2.2 mg/dL (1.8-2.4); PHOSPHOROUS 3.9 mg/dL (2.5-4.9); POTASSIUM 3.8 mmol/L (3.5-5.1); SODIUM 135 mmol/L (136-145)
[2018-12-06] MEDS: ENOXAPARIN NA (PORCINE) 100 MG/1 ML DISP.SYRIN SQ SCH ×2 (09:38→21:37)
[2018-12-06] MEDS: AMIODARONE HCL 200 MG TABLET (FP) PO SCH (09:38)
[2018-12-06] MEDS: DOCUSATE SODIUM 100 MG CAPSULE (FP) PO SCH ×2 (09:38→21:36)
[2018-12-06] MEDS: POLYETHYLENE GLYCOL 3350 119 GM BTL PO SCH ×2 (09:53→21:37)
--- NOTE | 2018-12-06 11:01 | PN ---
Progress Note, Physician History of Present Illness: Feeling improved Dyspnea better Tele: SR and SB with 2 second pauses - Current Medication List Current Medications: Active Medications Amiodarone HCl (Cordarone -) 200 mg PO DAILY [facility] Last Admin: 12/06/18 09:38 Dose: 200 mg Atorvastatin Calcium (Lipitor -) 20 mg PO [facility] Last Admin: 12/05/18 21:07 Dose: 20 mg Docusate Sodium (Colace -) 100 mg PO BID [facility] Last Admin: 12/06/18 09:38 Dose: 100 mg Enoxaparin Sodium (Lovenox -) 100 mg SQ BID [facility] Last Admin: 12/06/18 09:38 Dose: 100 mg Furosemide (Lasix Injection -) 40 mg IVPUSH BID@0600,1400 [facility] Last Admin: 12/06/18 05:35 Dose: 40 mg Metoprolol Succinate (Toprol Xl -) 50 mg PO BID [facility] Last Admin: 12/06/18 09:38 Dose: 50 mg Polyethylene Glycol (Miralax (For Daily Use) -) 17 gm PO BID [facility] Last Admin: 12/06/18 09:53 Dose: 17 grams Senna (Senna -) 2 tab PO [facility] Last Admin: 12/05/18 21:07 Dose: 2 tab Warfarin Sodium (Coumadin -) 5 mg PO DAILY@1800 [facility] Last Admin: 12/05/18 17:15 Dose: 5 mg - Objective Vital Signs: Vital Signs Temperature 97.8 F 12/06/18 05:31 Pulse Rate 72 12/06/18 10:00 Respiratory Rate 20 12/06/18 10:00 Blood Pressure 108/68 12/06/18 10:00 O2 Sat by Pulse Oximetry (%) 98 12/06/18 09:00 Constitutional: Yes: No Distress Cardiovascular: Yes: Regular Rate and Rhythm Respiratory: Yes: Rales Edema: No Labs: CBC, BMP 12/06/18 05:30 12/06/18 05:30 INR, PTT INR 1.74 (0.83-1.09) H 12/06/18 05:30 Assessment/Plan IMPRESSION: 1. Recent congestive heart failure, resolving. 2. Severe left ventricular diastolic dysfunction. 3. Hypertension, hypertensive cardiovascular disease. 4. Intermittent hypoxemia, most likely related to #2. 5. Persistent atrial fibrillation with controlled ventricular response. 6. Sleep apnea suspected 7. Hyponatremia. 8. History of hypercholesterolemia. RECOMMENDATIONS: 1. On Lasix 40mg IV BID, creat stable, will transition to 40mg PO BID 2. Atrial fibrillation with rate controlled with 2 sec pauses, continue amiodarone. May need to decrease metoprolol if pauses prolong. As per prior notes - Deferring RIVERA/CV. 5. On warfarin, bridging with lovenox. INR 1.7 today [Goal INR 2-3
--- NOTE | 2018-12-06 11:10 | PN ---
Progress Note, Physician History of Present Illness: pulmonary alert,no complaints,-sob at rest,-cough,-cp - Current Medication List Current Medications: Active Medications Amiodarone HCl (Cordarone -) 200 mg PO DAILY [facility] Last Admin: 12/06/18 09:38 Dose: 200 mg Atorvastatin Calcium (Lipitor -) 20 mg PO [facility] Last Admin: 12/05/18 21:07 Dose: 20 mg Docusate Sodium (Colace -) 100 mg PO BID [facility] Last Admin: 12/06/18 09:38 Dose: 100 mg Enoxaparin Sodium (Lovenox -) 100 mg SQ BID [facility] Last Admin: 12/06/18 09:38 Dose: 100 mg Furosemide (Lasix -) 40 mg PO BID@0600,1400 [facility] Metoprolol Succinate (Toprol Xl -) 50 mg PO BID [facility] Last Admin: 12/06/18 09:38 Dose: 50 mg Polyethylene Glycol (Miralax (For Daily Use) -) 17 gm PO BID [facility] Last Admin: 12/06/18 09:53 Dose: 17 grams Senna (Senna -) 2 tab PO [facility] Last Admin: 12/05/18 21:07 Dose: 2 tab Warfarin Sodium (Coumadin -) 5 mg PO DAILY@1800 [facility] Last Admin: 12/05/18 17:15 Dose: 5 mg - Objective Vital Signs: Vital Signs Temperature 97.8 F 12/06/18 05:31 Pulse Rate 72 12/06/18 10:00 Respiratory Rate 20 12/06/18 10:00 Blood Pressure 108/68 12/06/18 10:00 O2 Sat by Pulse Oximetry (%) 98 12/06/18 10:00 Constitutional: Yes: Well Nourished, Calm Eyes: Yes: WNL HENT: Yes: WNL Neck: Yes: WNL Cardiovascular: Yes: Pulse Irregular, S1, S2 Respiratory: Yes: Rales (bibasilar crackles) Gastrointestinal: Yes: Normal Bowel Sounds, Soft Extremities: Yes: WNL Edema: Yes Labs: CBC, BMP 12/06/18 05:30 12/06/18 05:30 INR, PTT INR 1.74 (0.83-1.09) H 12/06/18 05:30 Problem List - Problems (1) Acute on chronic diastolic CHF (congestive heart failure), NYHA class 3 Code(s): I50.33 - ACUTE ON CHRONIC DIASTOLIC (CONGESTIVE) HEART FAILURE (2) Afib Code(s): I48.91 - UNSPECIFIED ATRIAL FIBRILLATION Qualifiers: Atrial fibrillation type: chronic Qualified Code(s): I48.2 - Chronic atrial fibrillation (3) Acute hypoxemic respiratory failure Code(s): J96.01 - ACUTE RESPIRATORY FAILURE WITH HYPOXIA (4) HTN (hypertension) Code(s): I10 - ESSENTIAL (PRIMARY) HYPERTENSION (5) Hyponatremia Code(s): E87.1 - HYPO-OSMOLALITY AND HYPONATREMIA Assessment/Plan IMP ACUTE HYPOXEMIC RESPIRATORY FAILURE IMPROVING ACUTE ON CHRONIC DIASTOLIC HF AFIB PULMONARY HTN HYPONATREMIA improving HTN HLD 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 PLAN LASIX SUPPLEMENTAL O2 DAILY WT MONITOR LYTES,NA F/U CHEST X-RAY 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
[2018-12-06] MEDS: FUROSEMIDE 40 MG TABLET (FP) PO SCH (13:56)
--- NOTE | 2018-12-06 14:19 | PN ---
Progress Note, Physician Chief Complaint: Mr Hardy is without complaint. No cp, sob, n/v. - Current Medication List Current Medications: Active Medications Amiodarone HCl (Cordarone -) 200 mg PO DAILY [facility] Last Admin: 12/06/18 09:38 Dose: 200 mg Atorvastatin Calcium (Lipitor -) 20 mg PO HS [facility] Last Admin: 12/05/18 21:07 Dose: 20 mg Docusate Sodium (Colace -) 100 mg PO BID [facility] Last Admin: 12/06/18 09:38 Dose: 100 mg Enoxaparin Sodium (Lovenox -) 100 mg SQ BID [facility] Last Admin: 12/06/18 09:38 Dose: 100 mg Furosemide (Lasix -) 40 mg PO BID@0600,1400 [facility] Last Admin: 12/06/18 13:56 Dose: 40 mg Metoprolol Succinate (Toprol Xl -) 50 mg PO BID [facility] Last Admin: 12/06/18 09:38 Dose: 50 mg Polyethylene Glycol (Miralax (For Daily Use) -) 17 gm PO BID [facility] Last Admin: 12/06/18 09:53 Dose: 17 grams Senna (Senna -) 2 tab PO HS [facility] Last Admin: 12/05/18 21:07 Dose: 2 tab Warfarin Sodium (Coumadin -) 5 mg PO DAILY@1800 [facility] Last Admin: 12/05/18 17:15 Dose: 5 mg - Objective Vital Signs: Vital Signs Temperature 36.6 C 12/06/18 05:31 Pulse Rate 72 12/06/18 10:00 Respiratory Rate 20 12/06/18 10:00 Blood Pressure 108/68 12/06/18 10:00 O2 Sat by Pulse Oximetry (%) 94 L 12/06/18 11:38 Constitutional: Yes: Well Nourished, No Distress, Calm Cardiovascular: Yes: Regular Rate and Rhythm. No: Gallop, Murmur, Rub Respiratory: Yes: Regular, CTA Bilaterally. No: Rales, Rhonchi, Wheezes Gastrointestinal: Yes: Normal Bowel Sounds, Soft. No: Distention, Tenderness Extremities: Yes: WNL Edema: No Labs: CBC, BMP 12/06/18 05:30 12/06/18 05:30 INR, PTT INR 1.74 (0.83-1.09) H 12/06/18 05:30 Problem List - Problems (1) Acute on chronic diastolic CHF (congestive heart failure), NYHA class 3 Code(s): I50.33 - ACUTE ON CHRONIC DIASTOLIC (CONGESTIVE) HEART FAILURE (2) Acute hypoxemic respiratory failure Code(s): J96.01 - ACUTE RESPIRATORY FAILURE WITH HYPOXIA (3) Afib Code(s): I48.91 - UNSPECIFIED ATRIAL FIBRILLATION Qualifiers: Atrial fibrillation type: chronic Qualified Code(s): I48.2 - Chronic atrial fibrillation (4) HTN (hypertension) Code(s): I10 - ESSENTIAL (PRIMARY) HYPERTENSION Assessment/Plan (1) Acute on chronic diastolic CHF (congestive heart failure), NYHA class 3 Assessment/Plan: -cardiology note reviewed -placed on oral lasix today -will monitor to make sure continues to diuresis Code(s): I50.33 - ACUTE ON CHRONIC DIASTOLIC (CONGESTIVE) HEART FAILURE (2) Acute hypoxemic respiratory failure Assessment/Plan: -continue oxygen support -may need home oxygen Code(s): J96.01 - ACUTE RESPIRATORY FAILURE WITH HYPOXIA (3) Afib Assessment/Plan: -rate controlled -continue lovenox bridge with coumadin -INR not therapeutic Code(s): I48.91 - UNSPECIFIED ATRIAL FIBRILLATION Qualifiers: Atrial fibrillation type: chronic Qualified Code(s): I48.2 - Chronic atrial fibrillation (4) HTN (hypertension) Assessment/Plan: -controlled Code(s): I10 - ESSENTIAL (PRIMARY) HYPERTENSION
[2018-12-06] MEDS: WARFARIN NA 5 MG TABLET (UD) PO SCH (18:05)
[2018-12-06] MEDS: SENNOSIDES 8.6MG TABLET (FP) PO SCH (21:36)
[2018-12-06] MEDS: ATORVASTATIN CA 20 MG TABLET (FP) PO SCH (21:37)
[2018-12-07] MEDS: FUROSEMIDE 40 MG TABLET (FP) PO SCH ×2 (06:18→13:20)
[2018-12-07 07:48] LABS: BASO % 1.3 % (0-2.0); EOS % 3.5 % (0-4.5); HEMATOCRIT 39.6 % (35.4-49); HEMOGLOBIN 13.4 GM/dL (11.7-16.9); MCH 31.6 pg (25.7-33.7); MCHC 33.9 g/dl (32.0-35.9); MEAN CELL VOLUME 93.4 fl (80-96); MEAN PLT VOLUME 7.5 fl (7.5-11.1); MONO % 13.3 % (3.8-10.2); NEUT % 57.9 % (42.8-82.8); PLATELET COUNT 299 K/MM3 (134-434); RBC 4.24 M/mm3 (4.00-5.60); RDW 14.3 % (11.9-15.9); WHITE BLOOD COUNT 8.3 K/mm3 (4.0-10.0)
[2018-12-07 07:59] LABS: ANION GAP 7 MMOL/L (8-16); BLOOD UREA NITROGEN 32 mg/dL (7-18); CALCIUM 9.1 mg/dL (8.5-10.1); CHLORIDE 96 mmol/L (98-107); CO2 33 mmol/L (21-32); CREATININE 1.1 mg/dL (0.55-1.3); GLUCOSE,RANDOM 91 mg/dL (74-106); MAGNESIUM 2.5 mg/dL (1.8-2.4); POTASSIUM 3.8 mmol/L (3.5-5.1); SODIUM 136 mmol/L (136-145)
[2018-12-07 08:25] LABS: INR 2.31 (0.83-1.09); PROTHROMBIN TIME (PATIENT) 27.5 SEC (9.7-13.0)
[2018-12-07] MEDS: POLYETHYLENE GLYCOL 3350 119 GM BTL PO SCH ×2 (09:38→21:59)
[2018-12-07] MEDS: AMIODARONE HCL 200 MG TABLET (FP) PO SCH (09:38)
[2018-12-07] MEDS: DOCUSATE SODIUM 100 MG CAPSULE (FP) PO SCH ×2 (09:38→21:58)
--- NOTE | 2018-12-07 11:06 | PN ---
Progress Note, Physician History of Present Illness: Continues to feel improved from respiratory perspective Tele: neg - Current Medication List Current Medications: Active Medications Amiodarone HCl (Cordarone -) 200 mg PO DAILY [facility] Last Admin: 12/07/18 09:38 Dose: 200 mg Atorvastatin Calcium (Lipitor -) 20 mg PO HS [facility] Last Admin: 12/06/18 21:37 Dose: 20 mg Docusate Sodium (Colace -) 100 mg PO BID [facility] Last Admin: 12/07/18 09:38 Dose: 100 mg Furosemide (Lasix -) 40 mg PO BID@0600,1400 [facility] Last Admin: 12/07/18 06:18 Dose: 40 mg Metoprolol Succinate (Toprol Xl -) 50 mg PO BID [facility] Last Admin: 12/07/18 09:39 Dose: 50 mg Polyethylene Glycol (Miralax (For Daily Use) -) 17 gm PO BID [facility] Last Admin: 12/07/18 09:38 Dose: 17 grams Senna (Senna -) 2 tab PO [facility] Last Admin: 12/06/18 21:36 Dose: 2 tab Warfarin Sodium (Coumadin -) 5 mg PO DAILY@1800 [facility] Last Admin: 12/06/18 18:05 Dose: 5 mg - Objective Vital Signs: Vital Signs Temperature 98 F 12/07/18 09:00 Pulse Rate 68 12/07/18 09:00 Respiratory Rate 18 12/07/18 09:00 Blood Pressure 112/68 12/07/18 09:00 O2 Sat by Pulse Oximetry (%) 97 12/07/18 07:21 Constitutional: Yes: No Distress, Calm Cardiovascular: Yes: Pulse Irregular Respiratory: Yes: Poor Air Entry Edema: LLE: 1+, RLE: 1+ Labs: CBC, BMP 12/07/18 05:30 12/07/18 05:30 INR, PTT INR 2.31 (0.83-1.09) H 12/07/18 05:30 Assessment/Plan IMPRESSION: 1. Recent congestive heart failure, resolving. 2. Severe left ventricular diastolic dysfunction. 3. Hypertension, hypertensive cardiovascular disease. 4. Intermittent hypoxemia, most likely related to #2. 5. Persistent atrial fibrillation with controlled ventricular response. 6. Sleep apnea suspected 7. Hyponatremia. 8. History of hypercholesterolemia. RECOMMENDATIONS: 1. 5/5: On Lasix 40mg IV BID, creat stable at 1.0, will transition to 40mg PO BID 2. Atrial fibrillation with rate controlled with 2 sec pauses, continue amiodarone. May need to decrease metoprolol if pauses prolong. As per prior notes - Deferring RIVERA/CV. 3. 5: On warfarin, INR 2.3 today, will continue coumadin and d/c lovenox
[2018-12-07] MEDS: ENOXAPARIN NA (PORCINE) 100 MG/1 ML DISP.SYRIN SQ SCH (11:15)
--- NOTE | 2018-12-07 11:17 | PN ---
Progress Note, Physician History of Present Illness: pulmonary alert,comfortable, oob-chair,-sob. pt slept well on bipap - Current Medication List Current Medications: Active Medications Amiodarone HCl (Cordarone -) 200 mg PO DAILY [facility] Last Admin: 12/07/18 09:38 Dose: 200 mg Atorvastatin Calcium (Lipitor -) 20 mg PO HS [facility] Last Admin: 12/06/18 21:37 Dose: 20 mg Docusate Sodium (Colace -) 100 mg PO BID [facility] Last Admin: 12/07/18 09:38 Dose: 100 mg Furosemide (Lasix -) 40 mg PO BID@0600,1400 [facility] Last Admin: 12/07/18 06:18 Dose: 40 mg Metoprolol Succinate (Toprol Xl -) 50 mg PO BID [facility] Last Admin: 12/07/18 09:39 Dose: 50 mg Polyethylene Glycol (Miralax (For Daily Use) -) 17 gm PO BID [facility] Last Admin: 12/07/18 09:38 Dose: 17 grams Senna (Senna -) 2 tab PO [facility] Last Admin: 12/06/18 21:36 Dose: 2 tab Warfarin Sodium (Coumadin -) 5 mg PO DAILY@1800 [facility] Last Admin: 12/06/18 18:05 Dose: 5 mg - Objective Vital Signs: Vital Signs Temperature 98 F 12/07/18 09:00 Pulse Rate 68 12/07/18 09:00 Respiratory Rate 18 12/07/18 09:00 Blood Pressure 112/68 12/07/18 09:00 O2 Sat by Pulse Oximetry (%) 97 12/07/18 07:21 Constitutional: Yes: Well Nourished, Calm Eyes: Yes: WNL HENT: Yes: WNL Neck: Yes: WNL Cardiovascular: Yes: Pulse Irregular, S1, S2 Respiratory: Yes: Rales (bibasilar crackles) Gastrointestinal: Yes: Normal Bowel Sounds, Soft Extremities: Yes: WNL Edema: Yes Edema: LLE: Trace, RLE: Trace Labs: CBC, BMP 12/07/18 05:30 12/07/18 05:30 INR, PTT INR 2.31 (0.83-1.09) H 12/07/18 05:30 Problem List - Problems (1) Acute on chronic diastolic CHF (congestive heart failure), NYHA class 3 Code(s): I50.33 - ACUTE ON CHRONIC DIASTOLIC (CONGESTIVE) HEART FAILURE (2) Afib Code(s): I48.91 - UNSPECIFIED ATRIAL FIBRILLATION Qualifiers: Atrial fibrillation type: chronic Qualified Code(s): I48.2 - Chronic atrial fibrillation (3) Acute hypoxemic respiratory failure Code(s): J96.01 - ACUTE RESPIRATORY FAILURE WITH HYPOXIA (4) HTN (hypertension) Code(s): I10 - ESSENTIAL (PRIMARY) HYPERTENSION (5) Hyponatremia Code(s): E87.1 - HYPO-OSMOLALITY AND HYPONATREMIA Assessment/Plan IMP ACUTE HYPOXEMIC RESPIRATORY FAILURE IMPROVING ACUTE ON CHRONIC DIASTOLIC HF AFIB PULMONARY HTN HYPONATREMIA improved HTN HLD 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 PLAN LASIX SUPPLEMENTAL O2 DAILY WT MONITOR LYTES,NA F/U CHEST X-RAY 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
--- NOTE | 2018-12-07 12:26 | PN ---
Progress Note, Physician Chief Complaint: Mr Hardy is without complaint. No cp, sob, n/v. Says he is feeling well. - Current Medication List Current Medications: Active Medications Amiodarone HCl (Cordarone -) 200 mg PO DAILY [facility] Last Admin: 12/07/18 09:38 Dose: 200 mg Atorvastatin Calcium (Lipitor -) 20 mg PO [facility] Last Admin: 12/06/18 21:37 Dose: 20 mg Docusate Sodium (Colace -) 100 mg PO BID [facility] Last Admin: 12/07/18 09:38 Dose: 100 mg Furosemide (Lasix -) 40 mg PO BID@0600,1400 [facility] Last Admin: 12/07/18 06:18 Dose: 40 mg Metoprolol Succinate (Toprol Xl -) 50 mg PO BID [facility] Last Admin: 12/07/18 09:39 Dose: 50 mg Polyethylene Glycol (Miralax (For Daily Use) -) 17 gm PO BID [facility] Last Admin: 12/07/18 09:38 Dose: 17 grams Senna (Senna -) 2 tab PO [facility] Last Admin: 12/06/18 21:36 Dose: 2 tab Warfarin Sodium (Coumadin -) 5 mg PO DAILY@1800 [facility] Last Admin: 12/06/18 18:05 Dose: 5 mg - Objective Vital Signs: Vital Signs Temperature 36.6 C 12/07/18 09:00 Pulse Rate 70 12/07/18 12:15 Respiratory Rate 18 12/07/18 09:00 Blood Pressure 112/68 12/07/18 09:00 O2 Sat by Pulse Oximetry (%) 95 12/07/18 12:15 Constitutional: Yes: Well Nourished, No Distress, Calm Cardiovascular: Yes: Regular Rate and Rhythm. No: Gallop, Murmur, Rub Respiratory: Yes: Regular, CTA Bilaterally, On Nasal O2. No: Rales, Rhonchi, Wheezes Gastrointestinal: Yes: Normal Bowel Sounds, Soft. No: Distention, Tenderness Extremities: Yes: WNL Edema: No Labs: CBC, BMP 12/07/18 05:30 12/07/18 05:30 INR, PTT INR 2.31 (0.83-1.09) H 12/07/18 05:30 Problem List - Problems (1) Acute on chronic diastolic CHF (congestive heart failure), NYHA class 3 Code(s): I50.33 - ACUTE ON CHRONIC DIASTOLIC (CONGESTIVE) HEART FAILURE (2) Acute hypoxemic respiratory failure Code(s): J96.01 - ACUTE RESPIRATORY FAILURE WITH HYPOXIA (3) Afib Code(s): I48.91 - UNSPECIFIED ATRIAL FIBRILLATION Qualifiers: Atrial fibrillation type: chronic Qualified Code(s): I48.2 - Chronic atrial fibrillation (4) HTN (hypertension) Code(s): I10 - ESSENTIAL (PRIMARY) HYPERTENSION Assessment/Plan (1) Acute on chronic diastolic CHF (congestive heart failure), NYHA class 3 Assessment/Plan: -cardiology note reviewed -continue oral lasix -monitor today -plan for discharge tomorrow, will d/w cardiology if should be discharged on current oral dose Code(s): I50.33 - ACUTE ON CHRONIC DIASTOLIC (CONGESTIVE) HEART FAILURE (2) Acute hypoxemic respiratory failure Assessment/Plan: -continue oxygen support -may need home oxygen -pre and post tomorrow to see if needs home oxygen -outpatient sleep study to see if needs CPAP at night Code(s): J96.01 - ACUTE RESPIRATORY FAILURE WITH HYPOXIA (3) Afib Assessment/Plan: -rate controlled -therapeutic -stop lovenox -recheck INR to make sure coumadin does not need to be decreased Code(s): I48.91 - UNSPECIFIED ATRIAL FIBRILLATION Qualifiers: Atrial fibrillation type: chronic Qualified Code(s): I48.2 - Chronic atrial fibrillation (4) HTN (hypertension) Assessment/Plan: -controlled Code(s): I10 - ESSENTIAL (PRIMARY) HYPERTENSION
[2018-12-07] MEDS: WARFARIN NA 5 MG TABLET (UD) PO SCH (17:05)
[2018-12-07] MEDS: ATORVASTATIN CA 20 MG TABLET (FP) PO SCH (21:58)
[2018-12-07] MEDS: SENNOSIDES 8.6MG TABLET (FP) PO SCH (21:58)
[2018-12-08] MEDS: FUROSEMIDE 40 MG TABLET (FP) PO SCH (05:45)
[2018-12-08 06:55] LABS: BASO % 1.5 % (0-2.0); EOS % 3.5 % (0-4.5); HEMATOCRIT 40.1 % (35.4-49); HEMOGLOBIN 13.5 GM/dL (11.7-16.9); LYMPH % 26.4 % (8-40); MCH 31.6 pg (25.7-33.7); MCHC 33.7 g/dl (32.0-35.9); MEAN CELL VOLUME 93.8 fl (80-96); MEAN PLT VOLUME 7.3 fl (7.5-11.1); MONO % 12.6 % (3.8-10.2); PLATELET COUNT 287 K/MM3 (134-434); RBC 4.27 M/mm3 (4.00-5.60); WHITE BLOOD COUNT 8.1 K/mm3 (4.0-10.0)
[2018-12-08 07:05] LABS: ANION GAP 6 MMOL/L (8-16); BLOOD UREA NITROGEN 34 mg/dL (7-18); CALCIUM 9.1 mg/dL (8.5-10.1); CHLORIDE 97 mmol/L (98-107); CO2 33 mmol/L (21-32); CREATININE 1.1 mg/dL (0.55-1.3); GLUCOSE,RANDOM 80 mg/dL (74-106); MAGNESIUM 2.4 mg/dL (1.8-2.4); PHOSPHOROUS 4.1 mg/dL (2.5-4.9); POTASSIUM 3.9 mmol/L (3.5-5.1); SODIUM 136 mmol/L (136-145)
[2018-12-08 07:22] LABS: INR 2.47 (0.83-1.09); PROTHROMBIN TIME (PATIENT) 29.4 SEC (9.7-13.0)
--- NOTE | 2018-12-08 09:26 | PN ---
Progress Note, Physician Chief Complaint: feeling well: denies CP, SOB or palpitations. TELE: AF with average rate 60s. During evening/sleep hours bradycardia noted. No pauses > 3 seconds. - Current Medication List Current Medications: Active Medications Amiodarone HCl (Cordarone -) 200 mg PO DAILY [facility] Last Admin: 12/07/18 09:38 Dose: 200 mg Atorvastatin Calcium (Lipitor -) 20 mg PO [facility] Last Admin: 12/07/18 21:58 Dose: 20 mg Docusate Sodium (Colace -) 100 mg PO BID [facility] Last Admin: 12/07/18 21:58 Dose: 100 mg Furosemide (Lasix -) 40 mg PO BID@0600,1400 [facility] Last Admin: 12/08/18 05:45 Dose: 40 mg Metoprolol Succinate (Toprol Xl -) 50 mg PO BID [facility] Last Admin: 12/07/18 21:58 Dose: 50 mg Polyethylene Glycol (Miralax (For Daily Use) -) 17 gm PO BID [facility] Last Admin: 12/07/18 21:59 Dose: 17 grams Senna (Senna -) 2 tab PO [facility] Last Admin: 12/07/18 21:58 Dose: 2 tab Warfarin Sodium (Coumadin -) 5 mg PO DAILY@1800 [facility] Last Admin: 12/07/18 17:05 Dose: 5 mg - Objective Vital Signs: Vital Signs Temperature 97.5 F L 12/08/18 06:00 Pulse Rate 68 12/08/18 06:00 Respiratory Rate 20 12/08/18 06:00 Blood Pressure 137/95 12/08/18 06:00 O2 Sat by Pulse Oximetry (%) 96 12/08/18 07:27 Constitutional: Yes: No Distress Cardiovascular: Yes: Pulse Irregular Respiratory: Yes: CTA Bilaterally (no rales, no wheezing.) Gastrointestinal: Yes: Soft Edema: Yes Edema: LLE: 1+, RLE: 1+ Neurological: Yes: Alert, Oriented Labs: CBC, BMP 12/08/18 05:30 12/08/18 05:30 INR, PTT INR 2.47 (0.83-1.09) H 12/08/18 05:30 - ....Imaging EKG: Image Reviewed Assessment/Plan IMPRESSION: 1. Recent congestive heart failure, resolving. 2. Severe left ventricular diastolic dysfunction. 3. Hypertension, hypertensive cardiovascular disease. 4. Persistent atrial fibrillation with controlled ventricular response. 5. Sleep apnea suspected 6. Hyponatremia. 7. History of hypercholesterolemia. RECOMMENDATIONS: 1. Clinically improved with IV Lasix, now transitioned to PO. 2. Atrial fibrillation with rate controlled with 2 sec pauses, continue amiodarone. May need to decrease metoprolol if pauses prolong. As per prior notes - Deferring RIVERA/CV. 3. INR therapeutic 4. Dispo: December d/c tele. Patient will need outpatient f/u with Dr. Cortez
[2018-12-08 09:45] VITALS: BP 116/66; PULSE 73; TEMP 97.7
[2018-12-08] MEDS: DOCUSATE SODIUM 100 MG CAPSULE (FP) PO SCH (10:14)
[2018-12-08] MEDS: AMIODARONE HCL 200 MG TABLET (FP) PO SCH (10:14)
[2018-12-08] MEDS: POLYETHYLENE GLYCOL 3350 119 GM BTL PO SCH (10:15)
--- NOTE | 2018-12-08 10:45 | DS ---
Physical Examination Vital Signs: Vital Signs Temperature 36.5 C 12/08/18 09:45 Pulse Rate 73 12/08/18 10:00 Respiratory Rate 20 12/08/18 09:45 Blood Pressure 116/66 12/08/18 09:45 O2 Sat by Pulse Oximetry (%) 96 12/08/18 10:00 Constitutional: Yes: Well Nourished, No Distress, Calm Respiratory: Yes: Regular, CTA Bilaterally, On Nasal O2. No: Rales, Rhonchi, Wheezes Gastrointestinal: Yes: Normal Bowel Sounds, Soft. No: Distention, Tenderness Extremities: Yes: WNL Edema: No Labs: CBC, BMP 12/08/18 05:30 12/08/18 05:30 Discharge Summary Reason For Visit: NEW ONSET OF CONGESTIVE HEART FAILURE Current Active Problems Acute hypoxemic respiratory failure (Acute) Acute on chronic diastolic CHF (congestive heart failure), NYHA class 3 (Acute) Afib (Acute) HTN (hypertension) (Acute) Hyponatremia (Acute) New onset of congestive heart failure (Acute) Hospital Course: (1) Acute on chronic diastolic CHF (congestive heart failure), NYHA class 3 Code(s): I50.33 - ACUTE ON CHRONIC DIASTOLIC (CONGESTIVE) HEART FAILURE (2) Acute hypoxemic respiratory failure Code(s): J96.01 - ACUTE RESPIRATORY FAILURE WITH HYPOXIA (3) Afib Code(s): I48.91 - UNSPECIFIED ATRIAL FIBRILLATION Qualifiers: Atrial fibrillation type: chronic Qualified Code(s): I48.2 - Chronic atrial fibrillation (4) HTN (hypertension) Code(s): I10 - ESSENTIAL (PRIMARY) HYPERTENSION Mr Hardy is a very pleasant 88 year old male who presented with acute hypoxic respiratory failure secondary to CHF exacerbation. He was admitted to telemetry. He was seen by cardiology and aggressively diuresed. 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 Because he has atrial fibrillation, he was bridged from lovenox to coumadin and is currently therapeutic. He improved and was able to be transitioned to oral lasix. He will need home oxygen and this has been established. He is safe for discharge home. 32 minutes spent in preparation of this discharge Condition: Stable - Instructions Diet, Activity, Other Instructions: Resume previous diet and activity. Wear oxygen with activity. Referrals: Adrián Fung MD [Primary Care Provider] - Xavier Cortez MD [Staff Physician] - Disposition: [facility]/HOME HEALTH CARE - Home Medications Comprehensive Discharge Medication List: Ambulatory Orders Atorvastatin Ca [Lipitor] 20 mg PO DAILY 03/01/14 Amiodarone HCl 200 mg PO DAILY 11/30/18 Furosemide [Lasix -] 40 mg PO BID@0600,1400 #60 tablet 12/08/18 Metoprolol Succinate [Toprol XL -] 50 mg PO BID #60 tab.sr.24h 12/08/18 Warfarin Na [Coumadin -] 5 mg PO DAILY@1800 #30 tablet 12/08/18
--- NOTE | 2018-12-08 12:12 | PN ---
Progress Note, Physician History of Present Illness: pulmonary alert,comfortable,-resp distress. pt being discharged on home o2 - Current Medication List Current Medications: Active Medications Amiodarone HCl (Cordarone -) 200 mg PO DAILY [facility] Last Admin: 12/08/18 10:14 Dose: 200 mg Atorvastatin Calcium (Lipitor -) 20 mg PO [facility] Last Admin: 12/07/18 21:58 Dose: 20 mg Docusate Sodium (Colace -) 100 mg PO BID [facility] Last Admin: 12/08/18 10:14 Dose: 100 mg Furosemide (Lasix -) 40 mg PO BID@0600,1400 [facility] Last Admin: 12/08/18 05:45 Dose: 40 mg Metoprolol Succinate (Toprol Xl -) 50 mg PO BID [facility] Last Admin: 12/08/18 10:14 Dose: 50 mg Polyethylene Glycol (Miralax (For Daily Use) -) 17 gm PO BID [facility] Last Admin: 12/08/18 10:15 Dose: Not Given Senna (Senna -) 2 tab PO [facility] Last Admin: 12/07/18 21:58 Dose: 2 tab Warfarin Sodium (Coumadin -) 5 mg PO DAILY@1800 [facility] Last Admin: 12/07/18 17:05 Dose: 5 mg - Objective Vital Signs: Vital Signs Temperature 97.7 F 12/08/18 09:45 Pulse Rate 73 12/08/18 10:00 Respiratory Rate 20 12/08/18 09:45 Blood Pressure 116/66 12/08/18 09:45 O2 Sat by Pulse Oximetry (%) 96 12/08/18 10:00 Constitutional: Yes: Well Nourished, Calm Eyes: Yes: WNL HENT: Yes: WNL Neck: Yes: WNL Cardiovascular: Yes: Pulse Irregular, S1, S2 Respiratory: Yes: CTA Bilaterally Gastrointestinal: Yes: Normal Bowel Sounds, Soft Extremities: Yes: WNL Edema: Yes Labs: CBC, BMP 12/08/18 05:30 12/08/18 05:30 INR, PTT INR 2.47 (0.83-1.09) H 12/08/18 05:30 Problem List - Problems (1) Acute on chronic diastolic CHF (congestive heart failure), NYHA class 3 Code(s): I50.33 - ACUTE ON CHRONIC DIASTOLIC (CONGESTIVE) HEART FAILURE (2) Afib Code(s): I48.91 - UNSPECIFIED ATRIAL FIBRILLATION Qualifiers: Atrial fibrillation type: chronic Qualified Code(s): I48.2 - Chronic atrial fibrillation (3) Acute hypoxemic respiratory failure Code(s): J96.01 - ACUTE RESPIRATORY FAILURE WITH HYPOXIA (4) HTN (hypertension) Code(s): I10 - ESSENTIAL (PRIMARY) HYPERTENSION (5) Hyponatremia Code(s): E87.1 - HYPO-OSMOLALITY AND HYPONATREMIA Assessment/Plan IMP ACUTE HYPOXEMIC RESPIRATORY FAILURE IMPROVING ACUTE ON CHRONIC DIASTOLIC HF AFIB PULMONARY HTN HYPONATREMIA improved HTN HLD 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 PLAN LASIX PO SUPPLEMENTAL O2 DAILY WT MONITOR LYTES,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
== END 2018-12-08 12:17 | disposition home health service (06) | DRG 291 ==
LOC: JER 13:17 → JERBED 16:34 → J4W 12-01 15:51
PROVIDERS: ADMIT Hospitalist; ATTEND Internal Medicine
PROC: 5A09457 Assistance with Respiratory Ventilation, 24-96 Consecutive Hours, Continuous Positive Airway Pressure (ICD-10-PCS; principal; 2018-11-30)
DX: I11.0 Hypertensive heart disease with heart failure (principal); J96.01 Acute respiratory failure with hypoxia; I50.31 Acute diastolic (congestive) heart failure; E87.1 Hypo-osmolality and hyponatremia; I48.1 Persistent atrial fibrillation; J98.11 Atelectasis; E78.5 Hyperlipidemia, unspecified; R00.1 Bradycardia, unspecified; G47.33 Obstructive sleep apnea (adult) (pediatric); E87.70 Fluid overload, unspecified; I27.20 Pulmonary hypertension, unspecified; I34.0 Nonrheumatic mitral (valve) insufficiency; E66.09 Other obesity due to excess calories; Z68.28 Body mass index [BMI] 28.0-28.9, adult; Z87.891 Personal history of nicotine dependence; Z96.641 Presence of right artificial hip joint
CPT/HCPCS: 36415; 71045-TC-FY; 71250-TC; 80048; 80053; 81003; 83735; 83880; 84100; 84443; 84484; 85025; 85610; 85730; 87086; 93005; 93010; 93306-TC; 94660; 94761; 97116-GP; 97161-GP; 99285-25